=== PATIENT | female | born 1940 | race Caucasian/White ===

== ENCOUNTER 2016-10-20 10:28 | Inpatient (IN) | payer MEDICARE, OTHER ==
[2016-10-20] MEDS ORDERED: Lasix 20 MG/2 ML IV ONE (11:00)
[2016-10-20 11:10] LABS: BASOPHIL % 0.5 % (0.0-0.4); Eosinophil % 3.3 % (0.00-5.0); Granulocytes % 59.4 % (36.0-66.0); Lymphocytes % 18.7 % (24.0-44.0); Mean Cell Volume 96.9 fl (78-100); Mean Corpuscular Hemoglobin 31.8 pg (26-32); Mean Platelet Volume 8.9 fl (6-9.5); Monocytes % 18.1 % (0.0-12.0); Platelet Count 188 K/mm3 (150-450); Red Blood Count 3.52 M/mm3 (4.1-5.4); Red Cell Distribution Width 16.5 % (11.5-14.0); White Blood Count 3.6 K/mm3 (4.0-10.5)
--- NOTE | 2016-10-20 11:18 | XRAY ---
Indication: COPD exacerbation. Fluid overload. Comparison: July 18, 2016. Portable chest slightly degraded by respiration artifact. Lungs remain hyperinflated with probable stable left base infiltrate/atelectasis/effusion and left hilar masslike opacity. Right lung clear. Heart is not enlarged and again demonstrates subcarinal calcified nodes and right-sided Port-A-Cath. Bony thorax intact again with osteopenia and degenerative changes. Impression: Respiration artifact. Probable stable COPD, left base infiltrate/atelectasis/effusion, and left hilar masslike opacity. No new cardiopulmonary abnormalities.
[2016-10-20] MEDS: DUONEB 0.5-3 MG/3 ml Neb IH SCH ×4 (11:28→23:14)
[2016-10-20 11:49] LABS: ALBUMIN 3.3 g/dL (3.4-5.0); ANION GAP 13.1 MEQ/L (5-15); BILIRUBIN,TOTAL 0.4 mg/dL (0.2-1.0); Carbon Dioxide 31.6 mEq/L (21-32); Potassium 3.4 mEq/L (3.5-5.1); Total Protein 6.9 gm/dL (6.4-8.2)
[2016-10-20] MEDS ORDERED: Colace 100 MG PO PRN (12:42)
[2016-10-20] MEDS ORDERED: POTASSIUM CHLORIDE 20 mEq IN WATER 100ML 100 ML IV ONE (13:00)
[2016-10-20] MEDS: solu-CORTEF 100MG IV SCH ×2 (13:29→21:28)
[2016-10-20] MEDS ORDERED: Lasix 20 MG/2 ML IV SCH (17:00)
[2016-10-20 17:12] LABS: Collection Type CLEAN CATCH
[2016-10-20 17:15] LABS: Bacteria PACKED /HPF (NEGATIVE); COMPLETE URINE MICROSCOPIC? YES; Epithelial Cells MODERATE /HPF (FEW); WBC 0-2 /HPF (0-5)
[2016-10-20 17:16] LABS: ADD URINE CULTURE? YES (NO)
[2016-10-20] MEDS: ROCEPHIN 1 Gm-D5w 50 ml Bag** 1 G/50 ML IVPB IV SCH (20:19)
[2016-10-20] MEDS: XANAX 1 MG PO PRN (21:27)
[2016-10-20] MEDS: ZOCOR 20MG PO SCH (21:28)
[2016-10-20] MEDS ORDERED: LASIX 20 MG PO SCH (22:00)
[2016-10-20] MEDS ORDERED: NON-FORMULARY ITEM (Pravastatin Sodium [Pravastatin Sodium] 20 MG) PO SCH (22:00)
[2016-10-20] MEDS ORDERED: Klor Con 10 MEQ PO SCH (22:00)
[2016-10-21] MEDS: DUONEB 0.5-3 MG/3 ml Neb IH SCH ×6 (03:10→21:52)
[2016-10-21] MEDS: solu-CORTEF 100MG IV SCH (05:36)
[2016-10-21 05:45] LABS: ANION GAP 8.8 MEQ/L (5-15); Carbon Dioxide 32.3 mEq/L (21-32); Potassium 3.8 mEq/L (3.5-5.1)
--- NOTE | 2016-10-21 08:07 | PCM.HP ---
History of Present Illness - Chief Complaint Chief Complaint: COPD exacerbation; Fluid overload; Hypoxemia Date: 10/21/16 History of Present Illness: is a 76 year old female. with increasing edema in the lower extremities and increasing wheezing coughing and shortness of breath with history of diastolic heart failure copd, chronic hypoxemic respiratory failure and lung cancer presented to the office dyspneic and with hypoxia and was direct admitted and treated with iv diuresis and steroids. She is feeling a little better this am. Swelling improved some. She is still very weak and fatigued. she is also having urinary frequency and feels like she is only able to go small amounts and some suprapubic cramping as well. - Review of Systems Constitutional: Fatigue, Lethargy, No Fever, No Chills Eyes: No Eye Pain, No Vision Changes Ears, Nose, & Throat: No Ear Pain, No Sinus Drainage, No Mouth Pain, No Painful Swallowing Respiratory: Cough, Short Of Breath, Wheezing Cardiac: Chest Pain, Edema, No Palpitations, No Syncope Abdominal/Gastrointestinal: Constipation, No Abdominal Pain, No Nausea, No Vomiting, No Diarrhea Genitourinary Symptoms: Dysuria, Frequency, Hesitancy, Urgency, No Incontinence Musculoskeletal: Arthralgias, Back Pain, Joint Pain, No Fall, No Joint Redness Skin: No Cellulitis, No Decubiti, No Pruritis, No Rash Neurological: No Focal Weakness, No Speech Changes Hematologic/Lymphatic: Anemia, Easy Bruising Medications & Allergies Home Medications: Home Medication List Alprazolam 1 mg [Xanax 1 mg] 1 mg PO Q6HPRN PRN 08/07/14 [History Confirmed 10/20/16] Furosemide [Lasix] 40 mg PO BID 02/01/15 [History Confirmed 10/20/16] Aspirin 81 mg PO DAILY 07/18/16 [History Confirmed 10/20/16] Albuterol 2.5 mg/3 ml Neb [Proventil 2.5 mg/3 ml Neb] 2.5 mg IH QID [History Confirmed 10/20/16] Albuterol 8 gm Mdi Hfa [Ventolin Hfa MDI] 2 puff IH Q4HPRN PRN 10/20/16 [ History Confirmed 10/20/16] Pravastatin Sodium 20 mg PO HS 10/20/16 [History Confirmed 10/20/16] Cefuroxime Axetil 500 mg [Ceftin 500 mg] 500 mg PO BID #10 tablet 10/22/16 [ Rx] Potassium Chloride 10 Meq Tab* [Klor Con 10 MEQ] 10 meq PO TID #90 tab [Rx] Prednisone 20 mg [Deltasone 20 mg] 20 mg PO DAILY #5 tablet 10/22/16 [Rx] Allergies/Adverse Reactions: Allergies Allergy/AdvReac Type Severity Reaction Status Date / Time Sulfa (Sulfonamide Allergy Severe Swelling Verified 10/20/16 10:56 Antibiotics) bacitracin Allergy Intermediate Swelling Verified 10/20/16 10:56 [From Neosporin ([id number])] bacitracin zinc Allergy Intermediate Swelling Verified 10/20/16 10:56 [From Neosporin ([id number])] influenza virus vaccine, Allergy Intermediate Swelling Verified 10/20/16 10:56 specific [influenza virus vacc,specific] neomycin sulfate Allergy Intermediate Swelling Verified 10/20/16 10:56 [From Neosporin ([id number])] polymyxin B Allergy Intermediate Swelling Verified 10/20/16 10:56 [From Neosporin ([id number])] - Past Medical History Past Medical History: Yes Neurological History: TIA ENT History: Cataracts Cardiac History: No Pertinent History Respiratory History: Asthma, COPD, Lung Cancer Endocrine Medical History: No Pertinent History Musculoskelatal History: Arthritis GI Medical History: No Pertinent History History: No Pertinent History Pyscho-Social History: No Pertinent History Reproductive Disorders: No Pertinent History Comment: lung cancer; finished chemotherapy 10/06/16 - Female History Are you now?: No - Past Surgical History Past Surgical History: Yes Neuro Surgical History: No Pertinent History Cardiac History: No Pertinent History Respiratory Surgery: No Pertinent History GI Surgical History: Appendectomy, Hernia Repair Genitourinary Surgical Hx: Other Musculskeletal Surgical Hx: No Pertinent History Female Surgical History: Hysterectomy, Lumpectomy Other Surgical History: R lumpectomy, port placement; bladder tie-up - Social History Smoking Status: Current some day smoker How long have you smoked: 62 Exposure to second hand smoke: No Alcohol: None Drug Use: none Significant Family History: heart disease (father), cancer (brother with colon ca) - Physical Exam Vital Signs: Vital Signs - 24 hr Temp Pulse Resp BP Pulse Ox 10/21/16 07:25 98.0 F 97 H 17 103/58 92 L 10/21/16 04:00 98.2 F 103 H 19 109/55 94 L 10/21/16 00:00 98.4 F 104 H 22 105/55 95 10/20/16 23:14 96 H 21 94 L 10/20/16 20:00 98.3 F 100 H 20 83/50 96 10/20/16 18:53 105 H 24 82 L 10/20/16 16:00 97.6 F 100 H 25 H 88/51 97 10/20/16 15:27 103 H 22 92 L 10/20/16 12:00 24 10/20/16 11:44 97.6 F 107 H 24 114/64 99 10/20/16 11:31 96 H 20 99 Oxygen-Last 24 hours O2 Percentage 3 Liters = 32% O2 Percentage 3 Liters = 32% O2 Percentage 3 Liters = 32% O2 Percentage 3 Liters = 32% O2 Percentage 3 Liters = 32% O2 Percentage 3 Liters = 32% General Appearance: no apparent distress, alert Neurologic Exam: oriented x 3, cooperative Eye Exam: pale conjunctivae, No scleral icterus Ears, Nose, Throat Exam: dry mucous membranes Neck Exam: non-tender, supple Respiratory Exam: prolonged expirations, rhonchi, wheezing, No crackles/rales Cardiovascular Exam: murmur, tachycardia Gastrointestinal/Abdomen Exam: soft, normal bowel sounds, No tenderness, No distention Extremity Exam: pedal edema (left greater then right), No calf tenderness Skin Exam: warm, dry, No rash Results - Labs Lab/Micro Results: Accuchecks Date 10/21/16 Time 07:30 Accucheck Value: 258 Lab Results-Last 24 Hours 10/20/16 10/20/16 10/20/16 Range/Units 11:00 11:00 13:12 WBC 3.6 L (4.0-10.5) K/mm3 RBC 3.52 L (4.1-5.4) M/mm3 Hgb 11.2 L (12.0-16.0) gm/dl Hct 34.1 L (35-47) % MCV 96.9 (78-100) fl MCH 31.8 (26-32) pg MCHC 32.8 (32-36) g/dl RDW 16.5 H (11.5-14.0) % Plt Count 188 (150-450) K/mm3 MPV 8.9 (6-9.5) fl Gran % 59.4 (36.0-66.0) % Lymphocytes % 18.7 L (24.0-44.0) % Monocytes % 18.1 H (0.0-12.0) % Eosinophils % 3.3 (0.00-5.0) % Basophils % 0.5 (0.0-0.4) % Basophils # 0.02 (0-0.4) Sodium 143 (136-145) mEq/L Potassium 3.4 L (3.5-5.1) mEq/L Chloride 102 (98-107) mEq/L Carbon Dioxide 31.6 (21-32) mEq/L Anion Gap 13.1 (5-15) MEQ/L BUN 22 H (9-20) mg/dL Creatinine 1.16 (0.55-1.30) mg/dl Estimated GFR 48 ML/MIN Glucose 108 (70-110) MG/DL Calcium 8.9 (8.5-10.1) mg/dL Total Bilirubin 0.4 (0.2-1.0) mg/dL AST 19 (15-37) U/L ALT 7 L (12-78) U/L Alkaline Phosphatase 57 (46-116) U/L NT-Pro-B Natriuret Pep 202 (0-450) pg/ml Serum Total Protein 6.9 (6.4-8.2) gm/dL Albumin 3.3 L (3.4-5.0) g/dL Ur Collection Type CLEAN CATCH Urine Color YELLOW (YELLOW) Urine Appearance CLEAR (CLEAR) Urine pH 7.0 (5-6) Ur Specific [place] 1.015 (1.005-1.025) Urine Protein NEGATIVE (Negative) Urine Glucose (UA) NEGATIVE (NEGATIVE) mg/dL Urine Ketones NEGATIVE (NEGATIVE) Urine Nitrite POSITIVE (NEGATIVE) Urine Bilirubin NEGATIVE (NEGATIVE) Urine Urobilinogen 0.2 (0-1) mg/dL Urine WBC (Auto) NEGATIVE (NEGATIVE) Urine RBC (Auto) NEGATIVE (0-5) Michael/ul Urine Microscopic RBC 0-2 (0-2) /HPF Urine Microscopic WBC 0-2 (0-5) /HPF Ur Epithelial Cells MODERATE (FEW) /HPF Urine Bacteria PACKED (NEGATIVE) /HPF Specimen Received 10/20/16 1220 10/20/16 10/21/16 Range/Units 17:35 05:05 WBC (4.0-10.5) K/mm3 RBC (4.1-5.4) M/mm3 Hgb (12.0-16.0) gm/dl Hct (35-47) % MCV (78-100) fl MCH (26-32) pg MCHC (32-36) g/dl RDW (11.5-14.0) % Plt Count (150-450) K/mm3 MPV (6-9.5) fl Gran % (36.0-66.0) % Lymphocytes % (24.0-44.0) % Monocytes % (0.0-12.0) % Eosinophils % (0.00-5.0) % Basophils % (0.0-0.4) % Basophils # (0-0.4) Sodium 143 (136-145) mEq/L Potassium 3.8 3.8 (3.5-5.1) mEq/L Chloride 106 (98-107) mEq/L Carbon Dioxide 32.3 H (21-32) mEq/L Anion Gap 8.8 (5-15) MEQ/L BUN 26 H (9-20) mg/dL Creatinine 1.22 (0.55-1.30) mg/dl Estimated GFR 45 ML/MIN Glucose 258 H (70-110) MG/DL Calcium 8.5 (8.5-10.1) mg/dL Total Bilirubin (0.2-1.0) mg/dL AST (15-37) U/L ALT (12-78) U/L Alkaline Phosphatase (46-116) U/L NT-Pro-B Natriuret Pep (0-450) pg/ml Serum Total Protein (6.4-8.2) gm/dL Albumin (3.4-5.0) g/dL Ur Collection Type Urine Color (YELLOW) Urine Appearance (CLEAR) Urine pH (5-6) Ur Specific [place] (1.005-1.025) Urine Protein (Negative) Urine Glucose (UA) (NEGATIVE) mg/dL Urine Ketones (NEGATIVE) Urine Nitrite (NEGATIVE) Urine Bilirubin (NEGATIVE) Urine Urobilinogen (0-1) mg/dL Urine WBC (Auto) (NEGATIVE) Urine RBC (Auto) (0-5) Michael/ul Urine Microscopic RBC (0-2) /HPF Urine Microscopic WBC (0-5) /HPF Ur Epithelial Cells (FEW) /HPF Urine Bacteria (NEGATIVE) /HPF Specimen Received Microbiology 10/20/16 13:12 Urine Culture - Preliminary Clean Catch Midstream GRAM NEGATIVE ID AND SENSITIVITY PENDING Accuchecks Date 10/21/16 Time 07:30 Accucheck Value: 258 - Radiology Impressions Radiology Exams & Impressions: Radiology Procedures Category Date Time Status CHEST 1 VIEW (PORTABLE) Routine Exams 10/20/16 11:15 Completed ECHO W/2D AND DOPPLER [US] Routine Exams 10/21/16 12:49 Ordered - Other Procedures and Tests Respiratory Therapy 10/20/16 10:44 Respiratory Nebulizer 1100,1500,1900,2300,0300,0700 10/20/16 11:29 Oxygen NASAL CANNULA 3 lpm Assessment/Plan (1) Acute exacerbation of chronic obstructive airways disease Status: Acute Assessment & Plan: she has been having the swelling in the legs since before last week and u/s at that time was negative for dvt. continue dvt ppx use tyson hose and keep elevated use diuresis and replace k. responded well to the solucortef and the ceftriaxone with the breathing will try to wean to the prednisone and continue treatments. bp is low decrease lasix to day monitor K and replace continue ceftriaxone for UTI monitor culture results. Code(s): J44.1 - CHRONIC OBSTRUCTIVE PULMONARY DISEASE W (ACUTE) EXACERBATION (2) UTI (urinary tract infection) Status: Acute Code(s): N39.0 - URINARY TRACT INFECTION, SITE NOT SPECIFIED (3) Fluid overload Status: Acute Code(s): E87.70 - FLUID OVERLOAD, UNSPECIFIED (4) Anemia Status: Chronic Code(s): D64.9 - ANEMIA, UNSPECIFIED (5) Constipated Status: Chronic Qualifiers: Constipation type: slow transit constipation Qualified Code(s): K59.01 - Slow transit constipation Code(s): K59.00 - CONSTIPATION, UNSPECIFIED (6) Lung cancer Status: Chronic Qualifiers: Laterality: unspecified laterality Lung location: unspecified part of lung Qualified Code(s): C34.90 - Malignant neoplasm of unspecified part of unspecified bronchus or lung Code(s): C34.90 - MALIGNANT NEOPLASM OF UNSP PART OF UNSP BRONCHUS OR LUNG (7) Acute on chronic diastolic (congestive) heart failure Status: Acute Code(s): I50.33 - ACUTE ON CHRONIC DIASTOLIC (CONGESTIVE) HEART FAILURE (8) Hypokalemia Status: Acute Code(s): E87.6 - HYPOKALEMIA
[2016-10-21] MEDS: ECOTRIN 81 MG PO SCH (08:46)
[2016-10-21] MEDS: DELTASONE 20 MG PO SCH (08:46)
[2016-10-21] MEDS: Klor Con 10 MEQ PO SCH ×2 (08:46→21:12)
[2016-10-21] MEDS ORDERED: NON-FORMULARY ITEM (Aspirin [Aspirin] 81 MG) PO SCH (10:00)
[2016-10-21] MEDS ORDERED: Lasix 20 MG/2 ML IV SCH (10:00)
[2016-10-21] MEDS: ENOXAPARIN SODIUM SQ SCH (13:06)
[2016-10-21] MEDS ORDERED: Sodium Chloride 0.9% 10 ML FLUSH Syringe IV PRN (13:24)
[2016-10-21] MEDS: XANAX 1 MG PO PRN ×2 (13:39→21:14)
[2016-10-21] MEDS: ROCEPHIN 1 Gm-D5w 50 ml Bag** 1 G/50 ML IVPB IV SCH (21:15)
[2016-10-21] MEDS: ZOCOR 20MG PO SCH (21:23)
[2016-10-22] MEDS: DUONEB 0.5-3 MG/3 ml Neb IH SCH ×3 (02:43→10:54)
[2016-10-22 05:56] LABS: ANION GAP 7.6 MEQ/L (5-15); BLOOD UREA NITROGEN 17 mg/dL (9-20); CHLORIDE 109 mEq/L (98-107); Glucose 151 MG/DL (70-110); SODIUM 146 mEq/L (136-145)
[2016-10-22] MEDS: Klor Con 10 MEQ PO SCH ×2 (06:36→09:02)
[2016-10-22 07:07] VITALS: PULSE 97
[2016-10-22 07:45] VITALS: BP 115/56; O2SAT 96
[2016-10-22] MEDS ORDERED: POTASSIUM CHLORIDE 20 mEq IN WATER 100ML 100 ML IV ONE (07:59)
--- NOTE | 2016-10-22 08:13 | PCM.DCORD ---
- Discharge Discharge Date: 10/22/16 Disposition: Home, Self-Care Condition: Stable Prescriptions: New Prednisone 20 mg [Deltasone 20 mg] 20 mg PO DAILY #5 tablet Continue Alprazolam 1 mg [Xanax 1 mg] 1 mg PO Q6HPRN PRN PRN Reason: Anxiety Furosemide [Lasix] 40 mg PO BID Aspirin 81 mg PO DAILY Albuterol 8 gm Mdi Hfa [Ventolin Hfa MDI] 2 puff IH Q4HPRN PRN PRN Reason: Shortness Of Breath Pravastatin Sodium 20 mg PO HS Albuterol 2.5 mg/3 ml Neb [Proventil 2.5 mg/3 ml Neb] 2.5 mg IH QID Changed Potassium Chloride 10 Meq Tab* [Klor Con 10 MEQ] 10 meq PO TID #90 tab Instructions: Chronic Obstructive Pulmonary Disease, Urinary Tract Infection ( UTI), Quit Smoking Follow up with: JOHNNY REINOSO [Primary Care Provider] - 1 Week
--- NOTE | 2016-10-22 08:16 | PCM.DCORD ---
- Discharge Discharge Date: 10/22/16 Disposition: Home, Self-Care Condition: Stable Prescriptions: New Prednisone 20 mg [Deltasone 20 mg] 20 mg PO DAILY #5 tablet Cefuroxime Axetil 500 mg [Ceftin 500 mg] 500 mg PO BID #10 tablet Continue Alprazolam 1 mg [Xanax 1 mg] 1 mg PO Q6HPRN PRN PRN Reason: Anxiety Furosemide [Lasix] 40 mg PO BID Aspirin 81 mg PO DAILY Albuterol 8 gm Mdi Hfa [Ventolin Hfa MDI] 2 puff IH Q4HPRN PRN PRN Reason: Shortness Of Breath Pravastatin Sodium 20 mg PO HS Albuterol 2.5 mg/3 ml Neb [Proventil 2.5 mg/3 ml Neb] 2.5 mg IH QID Changed Potassium Chloride 10 Meq Tab* [Klor Con 10 MEQ] 10 meq PO TID #90 tab Instructions: Chronic Obstructive Pulmonary Disease, Urinary Tract Infection ( UTI), Quit Smoking Follow up with: JOHNNY REINOSO [Primary Care Provider] - 1 Week
[2016-10-22] MEDS ORDERED: Sodium Chloride 0.9% 500 ML 500 ML IV SCH (08:45)
[2016-10-22] MEDS: ECOTRIN 81 MG PO SCH (08:57)
[2016-10-22] MEDS: DELTASONE 20 MG PO SCH (08:57)
[2016-10-22] MEDS: ENOXAPARIN SODIUM SQ SCH (08:58)
--- NOTE | 2016-10-22 21:48 | PCM.DS ---
Discharge Summary Date of Admission: 10/20/16 10:28 Date of Discharge: 10/22/16 Admitting Physician: JOHNNY REINOSO Primary Care Provider: JOHNNY REINOSO Allergies Allergies Sulfa (Sulfonamide Antibiotics) Allergy (Severe, Verified 10/20/16 10:56) Swelling bacitracin [From Neosporin ([id number])] Allergy (Intermediate, Verified 10:56) Swelling bacitracin zinc [From Neosporin ([id number]-uqh-qtzje)] Allergy (Intermediate, Verified 10/20/16 10:56) Swelling influenza virus vaccine, specific [influenza virus vacc,specific] Allergy ( Intermediate, Verified 10/20/16 10:56) Swelling neomycin sulfate [From Neosporin ([id number]-amm-civbh)] Allergy (Intermediate, Verified 10/20/16 10:56) Swelling polymyxin B [From Neosporin ([id number])] Allergy (Intermediate, Verified 10:56) Swelling Hospital Summary - Hospital Course Hospital Course: presented with COPD exacerbation and UTI treated with steroids and developed steroid induced hyperglycemia that improved. also had increased swelling with previous u/s negative for dvt. Was placed on dvt ppx while inpatient with lovenox and teds and elevation and iv lasix improved the swelling that was worse on the left leg. Her urinating improved and breathing was much improved tolerated wean to po prednisone well. She was feeling much better and was still weak. SHe had 20 mEq of [place] prior to discharge and her home K was increased to tid from bid. Recheck next week. she will complete coarse e of ceftin for uti pending the culture. echo was done preliminarly ef appears 70% awaiting official reading. - Vitals & Intake/Output Vital Signs: Vital Signs Temperature 97.9 F 10/22/16 07:44 Pulse Rate 97 H 10/22/16 07:44 Respiratory Rate 20 10/22/16 07:55 Blood Pressure 115/56 10/22/16 07:44 O2 Sat by Pulse Oximetry 96 10/22/16 07:44 Oxygen-Last Documented O2 Percentage 2 Liters = 28% Intake & Output: Intake & Output 10/20/16 10/21/16 10/22/16 10/23/16 11:59 11:59 11:59 11:59 Intake Total 980 480 Output Total 3075 1300 Balance -2094 -0 Weight 60.736 kg 61.235 kg 67.177 kg - Lab Result Diagrams: 10/20/16 11:00 10/22/16 05:10 Lab Results-Last 24 Hrs: Accuchecks Date 10/22/16 Date 10/21/16 Time 07:54 Accucheck Value: 144 Accucheck Value: 201 Lab Results-Last 24 Hours 10/22/16 Range/Units 05:10 Sodium 146 H (136-145) mEq/L Potassium 3.0 L* (3.5-5.1) mEq/L Chloride 109 H (98-107) mEq/L Carbon Dioxide 32.0 (21-32) mEq/L Anion Gap 7.6 (5-15) MEQ/L BUN 17 (9-20) mg/dL Creatinine 0.90 (0.55-1.30) mg/dl Estimated GFR > 60 ML/MIN Glucose 151 H (70-110) MG/DL Calcium 8.0 L (8.5-10.1) mg/dL Micro Results-Entire Visit: Microbiology 10/20/16 13:12 Urine Culture - Preliminary Clean Catch Midstream GRAM NEGATIVE ID AND SENSITIVITY PENDING Accuchecks Date 10/22/16 Date 10/21/16 Time 07:54 Accucheck Value: 144 Accucheck Value: 201 - Radiology Exams Ordered Rad Exams-Entire Visit: Radiology Procedures Category Date Time Status ECHO W/2D AND DOPPLER [US] Routine Exams 10/21/16 12:49 Taken - Procedures and Test Procedures and Tests throughout Hospitalization: Therapy Orders & Screens 10/20/16 10:44 EKG ROUTINE Comment: Respiratory Nebulizer 1100,1500,1900,2300,0300,0700 Comment: Diagnosis: COPD exac., fluid overload, hypoxemia Respiratory Therapy Consult ROUTINE Comment: Reason For Exam: Diagnosis: COPD exac., fluid overload, hypoxemia 10/20/16 11:29 Oxygen NASAL CANNULA 3 lpm Comment: Diagnosis: COPD exac., fluid overload, hypoxemia 10/20/16 12:12 RT Screen per Nursing Assess ONCE Comment: Protocol Order Physician Instructions: Greater than 3 points order RT Admission Screen Reason For Exam: Triggered on Admission Diagnosis: COPD exacerbation; Fluid overload; Hypoxemia Diagnosis: COPD exacerbation; Fluid overload; Hypoxemia Pneumonia: No Home O2: Yes: wears at night Asthma: No CHF: No Home CPAP/BIPAP: No Home Nebs/MDI: Yes Total Points: 10 Discharge Exam General Appearance: no apparent distress, alert Neurologic Exam: alert, oriented x 3, cooperative Skin Exam: warm, dry Eye Exam: pale conjunctivae, No scleral icterus Ears, Nose, Throat Exam: dry mucous membranes Neck Exam: non-tender, supple Respiratory Exam: normal breath sounds, lungs clear Cardiovascular Exam: regular rate/rhythm, murmur, edema Gastrointestinal/Abdomen Exam: soft, normal bowel sounds, No tenderness Extremity Exam: normal inspection, pedal edema (left 1+ right trace), No calf tenderness Back Exam: normal inspection, No rash Final Diagnosis/Problem List - Final Discharge Diagnosis/Problem (1) Acute exacerbation of chronic obstructive airways disease Status: Acute (2) UTI (urinary tract infection) Status: Acute (3) Fluid overload Status: Acute (4) Anemia Status: Chronic (5) Constipated Status: Chronic (6) Lung cancer Status: Chronic (7) Acute on chronic diastolic (congestive) heart failure Status: Acute (8) Hypokalemia Status: Acute - Discharge Disposition: Home, Self-Care Condition: Stable Prescriptions: New Prednisone 20 mg [Deltasone 20 mg] 20 mg PO DAILY #5 tablet Cefuroxime Axetil 500 mg [Ceftin 500 mg] 500 mg PO BID #10 tablet Continue Alprazolam 1 mg [Xanax 1 mg] 1 mg PO Q6HPRN PRN PRN Reason: Anxiety Furosemide [Lasix] 40 mg PO BID Aspirin 81 mg PO DAILY Albuterol 8 gm Mdi Hfa [Ventolin Hfa MDI] 2 puff IH Q4HPRN PRN PRN Reason: Shortness Of Breath Pravastatin Sodium 20 mg PO HS Albuterol 2.5 mg/3 ml Neb [Proventil 2.5 mg/3 ml Neb] 2.5 mg IH QID Changed Potassium Chloride 10 Meq Tab* [Klor Con 10 MEQ] 10 meq PO TID #90 tab Instructions: Chronic Obstructive Pulmonary Disease, Urinary Tract Infection ( UTI), Quit Smoking Follow up with: JOHNNY REINOSO [Primary Care Provider] - 10/30/16 2:30 pm
--- NOTE | 2016-10-23 07:29 | ECHO ---
Transthoracic echocardiographic examination and color Doppler was done on 10/21/2016. INDICATION: History of diastolic failure. IMPRESSION: 1) NO REGIONAL WALL MOTION ABNORMALITY. ESTIMATED GLOBAL LEFT VENTRICULAR EJECTION FRACTION BETWEEN 60 AND 70%. 2) TRACE MITRAL REGURGITATION. 3) TRACE AORTIC REGURGITATION. 4) LEFT VENTRICULAR HYPERTROPHY. 5) TRACE PERICARDIAL EFFUSION. The left ventricle is visualized and demonstrated adequate motion of all the segments. Estimated global left ventricular ejection fraction between 60-70%. There is mild left ventricular hypertrophy. The mitral valve is seen and this opens adequately. There trace mitral regurgitation. The left atrium is normal. The aortic valve is mildly sclerotic. There is no significant gradient across the left ventricular outflow tract. There is trace regurgitation. Right side chambers are normal.
== END 2016-10-22 11:06 | disposition home or self-care (01) | DRG 190 ==
LOC: MED SURG 10:28
PROVIDERS: ADMIT Family Medicine; ATTEND Family Medicine
DX: J44.1 Chronic obstructive pulmonary disease with (acute) exacerbation (principal); I50.33 Acute on chronic diastolic (congestive) heart failure; N39.0 Urinary tract infection, site not specified; C34.90 Malignant neoplasm of unspecified part of unspecified bronchus or lung; D64.9 Anemia, unspecified; K59.00 Constipation, unspecified; E87.6 Hypokalemia; J45.909 Unspecified asthma, uncomplicated; R09.02 Hypoxemia; Z79.899 Other long term (current) drug therapy; M19.90 Unspecified osteoarthritis, unspecified site; Z72.0 Tobacco use; Z80.0 Family history of malignant neoplasm of digestive organs
CPT/HCPCS: 36415; 71010; 80048; 80053; 81000; 82962; 83880; 84132; 85025; 87077; 87086; 87186; 93005; 93306; 94640; 94760; J0696; J1642; J1650; J1720; J1940; J3480; A9270-GY; J7506

== ENCOUNTER 2017-02-01 09:21 | Emergency (ER) | payer MEDICARE, OTHER ==
[2017-02-01 09:42] VITALS: O2SAT 90
[2017-02-01] MEDS ORDERED: Bactroban OINTMENT TP ONE (09:49)
--- NOTE | 2017-02-01 09:49 | ERPHSYRPT ---
- History of Present Illness Time Seen by Provider: 02/01/17 09:46 Source: patient Exam Limitations: no limitations Patient Subjective Stated Complaint: states she thinks she has a cyst in the perineal area. Triage Nursing Assessment: to room per w/c. sob with exertion which she states is normal. hx of lung ca, pneumonia. has large cyst in perineal area. Physician History: cyst on right vaginal lip area started 2-3 days ago. denies any other symptoms Severity of Pain-Max: none Severity of Pain-Current: none Prior abdominal problems: none Sexual intercourse history: non-contributory Modifying Factors: Improves With: nothing Associated Symptoms: denies symptoms Allergies/Adverse Reactions: Sulfa (Sulfonamide Antibiotics) Allergy (Severe, Verified 02/01/17 09:42) Swelling bacitracin [From Neosporin ([id number]-[id number])] Allergy (Intermediate, Verified 04/12 09:42) Swelling bacitracin zinc [From Neosporin ([id number])] Allergy (Intermediate, Verified 02/01/17 09:42) Swelling influenza virus vaccine, specific [influenza virus vacc,specific] Allergy ( Intermediate, Verified 02/01/17 09:42) Swelling neomycin sulfate [From Neosporin ([id number]-pew-wjwfl)] Allergy (Intermediate, Verified 02/01/17 09:42) Swelling polymyxin B [From Neosporin ([id number]-xjn-[id number])] Allergy (Intermediate, Verified 04/12 09:42) Swelling Home Medications: Alprazolam 1 mg [Xanax 1 mg] 1 mg PO Q6HPRN PRN 08/07/14 [History] Furosemide [Lasix] 40 mg PO BID 02/01/15 [History] Aspirin 81 mg PO DAILY 07/18/16 [History] Albuterol 2.5 mg/3 ml Neb [Proventil 2.5 mg/3 ml Neb] 2.5 mg IH QID [History] Albuterol 8 gm Mdi Hfa [Ventolin Hfa MDI] 2 puff IH Q4HPRN PRN 10/20/16 [ History] Pravastatin Sodium 20 mg PO HS 10/20/16 [History] Hx Tetanus, Diphtheria Vaccination/Date Given: Yes Hx Influenza Vaccination/Date Given: No Hx Pneumococcal Vaccination/Date Given: Yes - Review of Systems Constitutional: No Symptoms Genitourinary Symptoms: Other (cyst on right side of vaginal lip) - Past Medical History Pertinent Past Medical History: Yes Neurological History: TIA ENT History: Cataracts Cardiac History: No Pertinent History Respiratory History: Asthma, COPD, Lung Cancer, Pneumonia Endocrine Medical History: No Pertinent History Musculoskeletal History: Arthritis GI Medical History: No Pertinent History History: No Pertinent History Psycho-Social History: No Pertinent History Female Reproductive Disorders: No Pertinent History Other Medical History: lung cancer; finished chemotherapy 10/06/16. started second round of chemotherapy 12-02-16. finished radiation treatments - Past Surgical History Past Surgical History: Yes Neuro Surgical History: No Pertinent History Cardiac: No Pertinent History Respiratory: No Pertinent History Gastrointestinal: Appendectomy, Hernia Repair Genitourinary: Other Musculoskeletal: No Pertinent History Female Surgical History: Hysterectomy, Lumpectomy Other Surgical History: R lumpectomy, port placement; bladder tie-up, fatty tumor removed from left ribs, eduardo cataracts removed , skin cancer removed from her forehead - Social History Smoking Status: Current every day smoker How long have you smoked: 62 Exposure to second hand smoke: No Drug Use: none Patient Lives Alone: No Significant Family History: heart disease (father), cancer (brother with colon ca) - Female History Hx Now: No - Nursing Vital Signs Nursing Vital Signs: Initial Vital Signs Temperature 97.7 F Temperature Source Oral Pulse Rate 107 Respiratory Rate 22 Blood Pressure [Right Arm] 121/62 Pain Intensity 9 - Physical Exam General Appearance: no apparent distress Gastrointestinal/Abdomen Exam: soft Pelvic Exam: other (vaginal area cyst right lip) SpO2: 90 Oxygen Delivery: Nasal Cannula - Course Nursing assessment & vital signs reviewed: Yes Ordered Tests: Active Orders 24 hr Category Date Time Status Oxygen-ED Only NASAL CANNULA 2 lpm Care 02/01/17 09:42 Active - Progress Progress: unchanged Counseled pt/family regarding: diagnosis, need for follow-up - Departure Time of Disposition: 09:49 Departure Disposition: Home Clinical Impression: Bartholin gland cyst Condition: Stable Critical Care Time: No Referrals: JOHNNY REINOSO [Primary Care Provider] - Instructions: Pilonidal Cyst Additional Instructions: Please follow the instructions given to you. Please take your medication as prescribed if given. If symptoms recur or get worse, come back to the emergency room if you cannot reach your primary care physician, or call your primary care physician for an appointment. Again if your symptoms get worse, come back to the emergency room. Thanks for visiting emergency room, and let us take care of you.
[2017-02-01 10:29] VITALS: BP 122/64; PULSE 102
== END 2017-02-01 10:28 | disposition home or self-care (01) ==
LOC: ED 09:21
DX: N75.0 Cyst of Bartholin's gland (principal)
CPT/HCPCS: 99282; A9270-GY

== ENCOUNTER 2017-02-08 20:28 | Emergency (ER) | payer MEDICARE, OTHER ==
--- NOTE | 2017-02-08 21:07 | ERPHSYRPT ---
- History of Present Illness Time Seen by Provider: 02/08/17 20:55 Source: patient Exam Limitations: no limitations Patient Subjective Stated Complaint: Pt was seen in ER a few days ago and was dx with bartholins cyst. Sts had a catheter placed at that time. Sts tonight was getting out of her chair and the catheter came out. Pt C/O pain in vaginal area. Sts has not urinated since the catheter came out. Triage Nursing Assessment: Pt alert, oriented, answers all questions appropriately. Skin p/w/d, resps non-labored at rest, labored with any exertion. SPO2 91-93% on 3L O2 patient wears at all times. Lung sounds end inspiratory and expiratory wheezes bilat. Physician History: This is a 76-year-old white female with history of stage IV lung cancer, TIA, cataracts, asthma, COPD, pneumonia, arthritis who has completed chemotherapy and radiation treatment Patient was seen here several going to days ago secondary to Bartholin's cyst she had a Mills catheter placed. Patient states that her Mills catheter came out this afternoon and she has been unable to urinate for about 4 hours. She states she is chronically short of breath she has no chest pain she states she is not short of breath more than usual. Past medical history includes TIA, cataracts, asthma, COPD, lung cancer, pneumonia, arthritis, lung cancer status post chemotherapy and radiation therapy ,. Past surgical history includes an appendectomy hernia repair hysterectomy and lumpectomy fatty tumor removed from her rib bladder tie up Timing/Duration: today (Mills came out about 4 hours ago) Severity: moderate Modifying Factors: Improves With: nothing Associated Symptoms: abdominal pain (acute discomfort), shortness of breath ( chronically short of breath), No nausea, No vomiting, No heartburn, No diaphoresis, No cough, No chills, No chest pain, No fever, No headaches, No loss of appetite, No malaise, No rash, No syncope, No seizure, No weakness Allergies/Adverse Reactions: Sulfa (Sulfonamide Antibiotics) Allergy (Severe, Verified 02/08/17 20:51) Swelling bacitracin [From Neosporin ([id number])] Allergy (Intermediate, Verified 20:51) Swelling bacitracin zinc [From Neosporin ([id number])] Allergy (Intermediate, Verified 02/08/17 20:51) Swelling influenza virus vaccine, specific [influenza virus vacc,specific] Allergy ( Intermediate, Verified 02/08/17 20:51) Swelling neomycin sulfate [From Neosporin ([id number])] Allergy (Intermediate, Verified 02/08/17 20:51) Swelling polymyxin B [From Neosporin ([id number]-[id number])] Allergy (Intermediate, Verified 20:51) Swelling Home Medications: Alprazolam 1 mg [Xanax 1 mg] 1 mg PO Q6HPRN PRN 08/07/14 [History] Furosemide [Lasix] 40 mg PO BID 02/01/15 [History] Aspirin 81 mg PO DAILY 07/18/16 [History] Albuterol 2.5 mg/3 ml Neb [Proventil 2.5 mg/3 ml Neb] 2.5 mg IH QID [History] Albuterol 8 gm Mdi Hfa [Ventolin Hfa MDI] 2 puff IH Q4HPRN PRN 10/20/16 [ History] Pravastatin Sodium 20 mg PO HS 10/20/16 [History] Hx Tetanus, Diphtheria Vaccination/Date Given: Yes Hx Influenza Vaccination/Date Given: No Hx Pneumococcal Vaccination/Date Given: Yes Immunizations Up to Date: Yes - Review of Systems Constitutional: No Fever, No Chills Eyes: No Symptoms Ears, Nose, & Throat: No Symptoms Respiratory: Dyspnea (chronically short of breath) Cardiac: No Chest Pain, No Edema, No Syncope Abdominal/Gastrointestinal: Other (suprapubic discomfort) Genitourinary Symptoms: No Symptoms, Other (patient recently seen here for bartolin cyst, patient placed on acyclovir and a cream), No Dysuria Musculoskeletal: No Back Pain, No Neck Pain Skin: No Rash Neurological: No Dizziness, No Focal Weakness, No Sensory Changes Psychological: No Symptoms Endocrine: No Symptoms All Other Systems: Reviewed and Negative (review sternal for significant [place]) - Past Medical History Pertinent Past Medical History: Yes Neurological History: TIA ENT History: Cataracts Cardiac History: No Pertinent History Respiratory History: Asthma, COPD, Lung Cancer, Pneumonia Endocrine Medical History: No Pertinent History Musculoskeletal History: Arthritis GI Medical History: No Pertinent History History: No Pertinent History Psycho-Social History: No Pertinent History Female Reproductive Disorders: No Pertinent History Other Medical History: lung cancer; finished chemotherapy 10/06/16. started second round of chemotherapy 12-02-16. finished radiation treatments - Past Surgical History Past Surgical History: Yes Neuro Surgical History: No Pertinent History Cardiac: No Pertinent History Respiratory: No Pertinent History Gastrointestinal: Appendectomy, Hernia Repair Genitourinary: Other Musculoskeletal: No Pertinent History Female Surgical History: Hysterectomy, Lumpectomy Other Surgical History: R lumpectomy, port placement; bladder tie-up, fatty tumor removed from left ribs, eduardo cataracts removed , skin cancer removed from her forehead - Social History Smoking Status: Current every day smoker How long have you smoked: 62 Exposure to second hand smoke: No Drug Use: none Patient Lives Alone: No Significant Family History: heart disease (father), cancer (brother with colon ca) - Female History Hx Now: No - Nursing Vital Signs Nursing Vital Signs: Initial Vital Signs Temperature 98.3 F Temperature Source Oral Pulse Rate 132 Respiratory Rate 24 Blood Pressure [Right Arm] 132/71 Pain Intensity 6 - Physical Exam General Appearance: no apparent distress, alert, other (laterally white female alert oriented x 3 pleasant and cooperative to examination) Eye Exam: PERRL/EOMI, eyes nml inspection Ears, Nose, Throat Exam: normal ENT inspection, TMs normal, pharynx normal, moist mucous membranes Neck Exam: normal inspection, non-tender, supple, full range of motion Respiratory Exam: wheezing (scattered wheezes) Cardiovascular Exam: tachycardia Gastrointestinal/Abdomen Exam: soft, normal bowel sounds, tenderness (mild suprapubic tenderness), No mass Pelvic Exam: other (Patient's external genitalia show mild edema and lightening of the skin of the right labia majora) Back Exam: normal inspection, normal range of motion, No CVA tenderness, No vertebral tenderness Extremity Exam: normal inspection, normal range of motion, pelvis stable Neurologic Exam: alert, oriented x 3, cooperative, normal mood/affect, nml cerebellar function, nml station & gait, sensation nml, No motor deficits Skin Exam: normal color, warm, dry, No rash SpO2 Interpretation: borderline oxygenation (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) SpO2: 91 Oxygen Delivery: Nasal Cannula - Course Nursing assessment & vital signs reviewed: Yes Ordered Tests: Active Orders 24 hr Category Date Time Status Catheter-[place] STAT Care 02/08/17 21:13 Active CULTURE,URINE Stat Lab 02/08/17 21:22 Received UA W/ MICROSCOPIC Stat Lab 02/08/17 21:22 Completed Lab/Rad Data: Laboratory Results 02/08/17 Range/Units 21:22 Ur Collection Type CATH Urine Color YELLOW (YELLOW) Urine Appearance SLIGHTLY CLOUDY (CLEAR) Urine pH 5.0 (5-6) Ur Specific [place] 1.020 (1.005-1.025) Urine Protein 30 (Negative) Urine Ketones NEGATIVE (NEGATIVE) Urine Blood 250 (0-5) Michael/ul Urine Nitrite NEGATIVE (NEGATIVE) Urine Bilirubin NEGATIVE (NEGATIVE) Urine Urobilinogen NORMAL (0-1) mg/dL Ur Leukocyte Esterase 1+ (NEGATIVE) Urine Microscopic RBC 25-50 (0-2) /HPF Urine Microscopic WBC 15-25 (0-5) /HPF Ur Epithelial Cells MODERATE (FEW) /HPF Urine Bacteria MANY (NEGATIVE) /HPF Hyaline Casts 10-25 (0-2) /LPF Urine Mucus MANY (NEGATIVE) /HPF Urine Glucose NEGATIVE (NEGATIVE) mg/dL Specimen Received 02/08/172119 - Progress Progress: improved Progress Note: 02/08/17 21:10 76-year-old white female with history of stage IV lung cancer also history of asthma COPD cataracts pneumonia arthritis He has been through chemotherapy and radiation therapy and is on home O2 She was seen here several days ago Mills was placed she also was treated with acyclovir for Bartholin's cyst. On physical examination patient is alert oriented 3 she is on oxygen chronically and currently on 3 L running an oxygen saturation of 91%. HEENT are within normal limits neck is supple. Lungs bilateral wheezes. Heart is tachycardic. Abdomen there is mild suprapubic tenderness genitalia there is edema to the right labia majora the skin appears to be a somewhat white in some areas the nurse reports some drainage I do not see drainage at this time. Extremities full range of motion pulse equal symmetrical 2 over 4 neuro cranial nerves II through XII are intact DTRs symmetrical 2 over 4 Cap[place] Coma Scale 15. Patient has urinary retention and her main presenting complaint is the suprapubic discomfort secondary to this. I've asked the nurses to place a Mills Will go ahead and ordered a urinalysis. I have offered to give the patient a breathing treatment and workup her lung problem however she at this time does not want to do this, , she states she will get a breathing treatment at home she also states that she is going to see her lung doctor in a day or 2 and does not want me to workup her lung problem will have nurses reaffirm this. We'll recheck patient after Mills has been placed and she is more comfortable. 02/08/17 21:43 Patient does have a UTI. Will place patient on Macrobid 100 mg orally twice a day urine has been cultured. Patient did not want further treatment. Mills has been placed. - Departure Time of Disposition: 21:43 Departure Disposition: Home Clinical Impression: Urinary retention, history of lung cancer stage IV UTI (urinary tract infection) Qualifiers: Urinary tract infection type: site unspecified Hematuria presence: with hematuria Qualified Code(s): N39.0 - Urinary tract infection, site not specified ; R31.9 - Hematuria, unspecified Condition: Fair Critical Care Time: No Additional Instructions: Return home. Macrobid 100 mg orally twice a day for 10 days. Follow-up with your family doctor. Albuterol treatments as prescribed by your gas specialist oxygen as prescribed by your gas specialist. Return for acute distress or for severe symptoms Prescriptions: Nitrofurantoin Macro 100 mg [Macrobid 100MG Capsule] 100 mg PO BID #20 capsule
[2017-02-08 21:37] LABS: ADD URINE CULTURE? YES (NO); Bacteria MANY /HPF (NEGATIVE); Bilirubin NEGATIVE (NEGATIVE); Blood 250 Ery/ul (0-5); COMPLETE URINE MICROSCOPIC? YES; Collection Type CATH; Epithelial Cells MODERATE /HPF (FEW); Glucose NEGATIVE (NEGATIVE); Leukocyte Esterase 1+ (NEGATIVE); Mucus MANY /HPF (NEGATIVE); WBC 15-25 /HPF (0-5)
[2017-02-08] MEDS ORDERED: Macrobid 100MG Capsule PO ONE (21:46)
[2017-02-08] MEDS ORDERED: Macrobid 100MG Capsule ONE (21:51)
[2017-02-08 22:00] VITALS: BP 111/60; PULSE 117; O2SAT 97
== END 2017-02-08 22:13 | disposition home or self-care (01) ==
LOC: ED 20:28
DX: R33.9 Retention of urine, unspecified (principal); R31.9 Hematuria, unspecified; Z85.118 Personal history of other malignant neoplasm of bronchus and lung; R06.02 Shortness of breath; R10.9 Unspecified abdominal pain; Z46.6 Encounter for fitting and adjustment of urinary device
CPT/HCPCS: 51702; 81000; 87086; 99283; A9270-GY

== ENCOUNTER 2017-02-09 15:21 | Inpatient (IN) | payer MEDICARE, OTHER ==
[2017-02-09] MEDS ORDERED: TYLENOL 325 MG ONE (15:41)
[2017-02-09] MEDS ORDERED: TYLENOL 325 MG PO STA (15:44)
[2017-02-09] MEDS ORDERED: Levofloxacin 500MG/100ML D5W 500 MG/100 ML BAG IV STA (16:02)
[2017-02-09] MEDS ORDERED: Sodium Chloride 0.9% 1000 ML 1,000 ML IV STA ×2 (16:02→16:08)
[2017-02-09] MEDS ORDERED: Levofloxacin 500MG/100ML D5W 500 MG/100 ML BAG IV ONE (16:07)
[2017-02-09] MEDS ORDERED: Sodium Chloride 0.9% 1000 ML 1,000 ML ONE (16:07)
[2017-02-09] MEDS ORDERED: DUONEB 0.5-3 MG/3 ml Neb IH ONE ×2 (16:09→16:36)
[2017-02-09 16:14] LABS: Mean Platelet Volume 8.8 fl (6-9.5); Platelet Count 205 K/mm3 (150-450); Red Blood Count 3.86 M/mm3 (4.1-5.4); Red Cell Distribution Width 13.9 % (11.5-14.0); White Blood Count 9.2 K/mm3 (4.0-10.5)
[2017-02-09] MEDS ORDERED: Sodium Chloride 0.9% 1000 ML 1,000 ML IV SCH ×2 (16:15→17:30)
[2017-02-09 16:18] LABS: INR 1.14 (0.8-3.0); PROTIME 12.9 SECONDS (9.95-12.35)
[2017-02-09 16:21] LABS: ALBUMIN 2.8 g/dL (3.4-5.0); ANION GAP 8.1 MEQ/L (5-15); BILIRUBIN,TOTAL 0.5 mg/dL (0.2-1.0); Carbon Dioxide 36.1 mEq/L (21-32); Potassium 4.3 mEq/L (3.5-5.1); Total Protein 6.1 gm/dL (6.4-8.2)
--- NOTE | 2017-02-09 16:21 | XRAY ---
Indication: Weakness. Possible sepsis. Comparison: October 20, 2016. Portable chest unchanged again hyperinflated with left hilar masslike opacity, left base infiltrate/atelectasis, calcified mediastinal nodes, and right Port-A-Cath. Remaining right lung and heart unremarkable.
--- NOTE | 2017-02-09 16:33 | ERPHSYRPT ---
- History of Present Illness Time Seen by Provider: 02/09/17 15:40 Source: patient Exam Limitations: clinical condition Patient Subjective Stated Complaint: ems reports they were called to pt house earlier today and was able to got back to chair. ems reports they were called to pt residence this afteroon for pt feeling weak. pt states she is currently being treated for left lung cancer. pt states she was seen in ER last pm for a matson catheter change and antibiotis for a "bladder infection." Triage Nursing Assessment: pt pale, hot to touch, dry. rectal temp 102.4. breathing wnl. pt alert and oriented x3. Physician History: PATIENT WITH HISTORY OR DIASTOLIC CONGESTIVE HEART FAILURE, COPD, CHRONIC HYPOXIC RESPIRATORY FAILURE COMPLAINS OF GENERALIZED WEAKNESS ASSOCIATED WITH FEVER AND GENERALIZED WEAKNESS SINCE LAST NIGHT. DENIES CHEST PAIN BUT COMPLAINS OF MARKED EXERTIONAL DYSPNEA. Timing/Duration: yesterday Severity: moderate Associated Symptoms: shortness of breath, fever Allergies/Adverse Reactions: Sulfa (Sulfonamide Antibiotics) Allergy (Severe, Verified 02/09/17 15:29) Swelling bacitracin [From Neosporin ([id number])] Allergy (Intermediate, Verified 15:29) Swelling bacitracin zinc [From Neosporin ([id number]-dzs-npnvo)] Allergy (Intermediate, Verified 02/09/17 15:29) Swelling influenza virus vaccine, specific [influenza virus vacc,specific] Allergy ( Intermediate, Verified 02/09/17 15:29) Swelling neomycin sulfate [From Neosporin ([id number])] Allergy (Intermediate, Verified 02/09/17 15:29) Swelling polymyxin B [From Neosporin ([id number]-teq-ayeac)] Allergy (Intermediate, Verified 15:29) Swelling Home Medications: Alprazolam 1 mg [Xanax 1 mg] 1 mg PO Q6HPRN PRN 08/07/14 [History] Furosemide [Lasix] 40 mg PO BID 02/01/15 [History] Aspirin 81 mg PO DAILY 07/18/16 [History] Albuterol 8 gm Mdi Hfa [Ventolin Hfa MDI] 2 puff IH Q4HPRN PRN 10/20/16 [ History] Pravastatin Sodium 20 mg PO HS 10/20/16 [History] Acyclovir 200 mg Cap [Zovirax 200 mg ] 200 mg PO BID 02/09/17 [History] Hx Tetanus, Diphtheria Vaccination/Date Given: Yes (up to date) Hx Influenza Vaccination/Date Given: No Hx Pneumococcal Vaccination/Date Given: No Immunizations Up to Date: Yes - Review of Systems Constitutional: Fever, Chills, Weakness Eyes: No Symptoms Ears, Nose, & Throat: No Symptoms Respiratory: Dyspnea, Dyspnea on Exertion (KILLIAN), Wheezing Cardiac: No Symptoms Abdominal/Gastrointestinal: No Symptoms Genitourinary Symptoms: No Symptoms Musculoskeletal: No Symptoms Skin: No Symptoms - Past Medical History Pertinent Past Medical History: Yes Neurological History: TIA ENT History: Cataracts Cardiac History: No Pertinent History Respiratory History: Asthma, COPD, Lung Cancer, Pneumonia Endocrine Medical History: No Pertinent History Musculoskeletal History: Arthritis GI Medical History: No Pertinent History History: No Pertinent History Psycho-Social History: No Pertinent History Female Reproductive Disorders: No Pertinent History Other Medical History: lung cancer; finished chemotherapy 10/06/16. started second round of chemotherapy 12-02-16. finished radiation treatments - Past Surgical History Past Surgical History: Yes Neuro Surgical History: No Pertinent History Cardiac: No Pertinent History Respiratory: No Pertinent History Gastrointestinal: Appendectomy, Hernia Repair Genitourinary: Other Musculoskeletal: No Pertinent History Female Surgical History: Hysterectomy, Lumpectomy Other Surgical History: R lumpectomy, port placement; bladder tie-up, fatty tumor removed from left ribs, eduardo cataracts removed , skin cancer removed from her forehead - Social History Smoking Status: Current every day smoker How long have you smoked: 65 Exposure to second hand smoke: Yes Drug Use: none Patient Lives Alone: No Significant Family History: heart disease (father), cancer (brother with colon ca) - Female History Hx Now: No - Nursing Vital Signs Nursing Vital Signs: Initial Vital Signs Temperature 102.4 F Temperature Source Rectal Pulse Rate 116 Respiratory Rate 16 Blood Pressure [] 89/58 Pain Intensity 0 - Physical Exam General Appearance: lethargy Eye Exam: PERRL/EOMI, eyes nml inspection Ears, Nose, Throat Exam: normal ENT inspection, TMs normal, pharynx normal, moist mucous membranes Neck Exam: normal inspection, non-tender, supple, full range of motion Respiratory Exam: crackles/rales, wheezing (DIFFUSE INSPIRATORY WHEEZES), No respiratory distress Cardiovascular Exam: regular rate/rhythm, normal heart sounds, normal peripheral pulses Gastrointestinal/Abdomen Exam: soft, normal bowel sounds, No tenderness, No mass Back Exam: normal inspection, normal range of motion, No CVA tenderness, No vertebral tenderness Extremity Exam: normal inspection, normal range of motion, pelvis stable Neurologic Exam: alert, oriented x 3, cooperative, normal mood/affect, nml cerebellar function, nml station & gait, sensation nml, No motor deficits Skin Exam: normal color, warm, dry, No rash Lymphatic Exam: No adenopathy SpO2 Interpretation: normal SpO2: 96 Oxygen Delivery: Nasal Cannula - Radiology Exams Chest X-ray Interpretation: Discussed w/ radiologist (HYPERINFLATED WISTH LEFT HILAR, MASSLIKE OPACITY LEFT BASE INFILTRATE/ATELECTASIS) Ordered Tests: Active Orders 24 hr Category Date Time Status Bedrest with BRP/BSC ROUTINE Activity 02/09/17 17:20 Ordered Admission/Status Order ROUTINE Care 02/09/17 17:18 Ordered Call Admit Doctor for Orders ON ADMISSION Care 02/09/17 17:19 Ordered Software Application Tester STAT Care 02/09/17 15:38 Active Cath [Catheter-[place]] STAT Care 02/09/17 16:04 Active Code Status Order ROUTINE Care 02/09/17 17:18 Ordered EKG-ER Only STAT Care 02/09/17 16:20 Active IV Care Q6H Care 02/09/17 17:18 Ordered IV Insertion STAT Care 02/09/17 15:38 Active Oxygen-ED Only NASAL CANNULA 3 lpm Care 02/09/17 15:38 Active Vital Signs Q4H Care 02/09/17 17:18 Ordered Cardiac Diet Diet 02/09/17 Breakfast Ordered CHEST 1 VIEW (PORTABLE) Stat Exams 02/09/17 16:02 Completed BLOOD CULTURE Stat Lab 02/09/17 15:50 Received CBC W DIFF Stat Lab 02/09/17 16:02 Completed CMP Stat Lab 02/09/17 16:02 Completed CULTURE,URINE Stat Lab 02/09/17 16:04 Ordered Lactic Acid Stat Lab 02/09/17 16:02 Completed Manual Differential NC Stat Lab 02/09/17 16:02 Completed PROTIME WITH INR Stat Lab 02/09/17 16:02 Completed UA W/ MICROSCOPIC Stat Lab 02/09/17 16:04 Completed Oxygen NASAL CANNULA 2 lpm RT 02/09/17 17:18 Ordered Pulse Oximetry CONTINUOUS RT 02/09/17 17:20 Ordered Respiratory Nebulizer STAT RT 02/09/17 16:09 Completed Respiratory Nebulizer STAT RT 02/09/17 17:26 Ordered Transfer Order Routine Transfer 02/09/17 17:17 Ordered Medication Summary Generic Name Dose Route Start Last Admin Trade Name Suyapa PRN Reason Stop Dose Admin Acetaminophen 650 mg 02/09/17 17:18 Tylenol 325 Mg PO 03/11/17 17:17 Q4H PRN PRN PAIN AND/OR FEVER Levofloxacin/Dextrose 500 mg in 100 mls @ 100 mls/hr 02/10/17 10:00 Levofloxacin 500mg/100ml D5w IV 03/12/17 09:59 Q24H10 RUDI Sodium Chloride 1,000 mls @ 75 mls/hr 02/09/17 17:30 Sodium Chloride 0.9% 1000 Ml IV 03/11/17 17:29 .[id number] RUDI Levalbuterol HCl 1.25 mg 02/09/17 17:24 Xopenex 1.25 Mg/0.5 Ml Ud Nebule IH 03/11/17 17:23 Q2HPRN PRN DIFFICULTY BREATHING Ondansetron HCl 4 mg 02/09/17 17:18 Zofran 4 Mg/2 Ml Vial IV 03/11/17 17:17 Q6H PRN PRN NAUSEA/VOMITING Discontinued Medications Generic Name Dose Route Start Last Admin Trade Name Suyapa PRN Reason Stop Dose Admin Acetaminophen Confirm 02/09/17 15:41 Tylenol 325 Mg Administered 02/09/17 15:42 Dose 650 mg .ROUTE .STK-MED ONE Acetaminophen 650 mg 02/09/17 15:44 02/09/17 15:45 Tylenol 325 Mg PO 02/09/17 15:45 650 mg STAT STA Administration Albuterol/Ipratropium 3 ml 02/09/17 16:09 02/09/17 16:42 Duoneb 0.5-3 Mg/3 Ml Neb IH 02/09/17 16:10 3 ml STAT ONE Administration Albuterol/Ipratropium Confirm 02/09/17 16:36 Duoneb 0.5-3 Mg/3 Ml Neb Administered 02/09/17 16:37 Dose 3 ml IH .STK-MED ONE Levofloxacin/Dextrose 500 mg in 100 mls @ 100 mls/hr 02/09/17 16:02 02/09/17 16:11 Levofloxacin 500mg/100ml D5w IV 02/09/17 17:01 100 mls/hr STAT STA Administration Sodium Chloride 1,000 mls @ 999 mls/hr 02/09/17 16:15 02/09/17 16:53 Sodium Chloride 0.9% 1000 Ml IV 02/09/17 18:15 Not Given .Q1H1M RUDI Sodium Chloride 1,000 mls @ 999 mls/hr 02/09/17 16:02 02/09/17 16:58 Sodium Chloride 0.9% 1000 Ml IV 02/09/17 17:02 100 mls/hr .Q1H1M STA Infusion Levofloxacin/Dextrose Confirm 02/09/17 16:07 Levofloxacin 500mg/100ml D5w Administered 02/09/17 16:08 Dose 500 mg in 100 mls @ ud IV .STK-MED ONE Sodium Chloride 1,000 mls @ 999 mls/hr 02/09/17 16:08 02/09/17 16:53 Sodium Chloride 0.9% 1000 Ml IV 02/09/17 17:08 Not Given .Q1H1M STA Sodium Chloride Confirm 02/09/17 16:07 Sodium Chloride 0.9% 1000 Ml Administered 02/09/17 16:08 Dose 1,000 mls @ ud .ROUTE .STK-MED ONE Lab/Rad Data: Laboratory Result Diagrams 02/09/17 16:02 02/09/17 16:02 Laboratory Results 02/09/17 02/09/17 02/09/17 Range/Units 16:04 16:02 16:02 WBC (4.0-10.5) K/mm3 RBC (4.1-5.4) M/mm3 Hgb (12.0-16.0) gm/dl Hct (35-47) % MCV (78-100) fl MCH (26-32) pg MCHC (32-36) g/dl RDW (11.5-14.0) % Plt Count (150-450) K/mm3 MPV (6-9.5) fl INR 1.14 (0.8-3.0) Sodium 132 L (136-145) mEq/L Potassium 4.3 (3.5-5.1) mEq/L Chloride 92 L (98-107) mEq/L Carbon Dioxide 36.1 H (21-32) mEq/L Anion Gap 8.1 (5-15) MEQ/L BUN 19 (9-20) mg/dL Creatinine 1.03 (0.55-1.30) mg/dl Estimated GFR 55 ML/MIN Glucose 123 H (70-110) MG/DL Lactic Acid (0.4-2.0) Calcium 8.6 (8.5-10.1) mg/dL Total Bilirubin 0.50 (0.2-1.0) mg/dL AST 21 (15-37) U/L ALT 20 (12-78) U/L Alkaline Phosphatase 59 (46-116) U/L Serum Total Protein 6.1 L (6.4-8.2) gm/dL Albumin 2.8 L (3.4-5.0) g/dL Ur Collection Type CATH Urine Color YELLOW (YELLOW) Urine Appearance CLOUDY (CLEAR) Urine pH 5.0 (5-6) Ur Specific [place] 1.020 (1.005-1.025) Urine Protein 100 (Negative) Urine Ketones SMALL (NEGATIVE) Urine Blood 250 (0-5) Michael/ul Urine Nitrite NEGATIVE (NEGATIVE) Urine Bilirubin NEGATIVE (NEGATIVE) Urine Urobilinogen 4 (0-1) mg/dL Ur Leukocyte Esterase 1+ (NEGATIVE) Urine Microscopic RBC 15-25 (0-2) /HPF Urine Microscopic WBC 5-10 (0-5) /HPF Ur Epithelial Cells RARE (FEW) /HPF Amorphous Crystals MANY (NEGATIVE) /HPF Urine Bacteria MANY (NEGATIVE) /HPF Urine Glucose 100 (NEGATIVE) mg/dL Specimen Received 02/09/17 1620 02/09/17 02/09/17 Range/Units 16:02 16:02 WBC 9.2 (4.0-10.5) K/mm3 RBC 3.86 L (4.1-5.4) M/mm3 Hgb 11.6 L (12.0-16.0) gm/dl Hct 36.3 (35-47) % MCV 94.0 (78-100) fl MCH 30.0 (26-32) pg MCHC 32.0 (32-36) g/dl RDW 13.9 (11.5-14.0) % Plt Count 205 (150-450) K/mm3 MPV 8.8 (6-9.5) fl INR (0.8-3.0) Sodium (136-145) mEq/L Potassium (3.5-5.1) mEq/L Chloride (98-107) mEq/L Carbon Dioxide (21-32) mEq/L Anion Gap (5-15) MEQ/L BUN (9-20) mg/dL Creatinine (0.55-1.30) mg/dl Estimated GFR ML/MIN Glucose (70-110) MG/DL Lactic Acid 1.1 (0.4-2.0) Calcium (8.5-10.1) mg/dL Total Bilirubin (0.2-1.0) mg/dL AST (15-37) U/L ALT (12-78) U/L Alkaline Phosphatase (46-116) U/L Serum Total Protein (6.4-8.2) gm/dL Albumin (3.4-5.0) g/dL Ur Collection Type Urine Color (YELLOW) Urine Appearance (CLEAR) Urine pH (5-6) Ur Specific [place] (1.005-1.025) Urine Protein (Negative) Urine Ketones (NEGATIVE) Urine Blood (0-5) Michael/ul Urine Nitrite (NEGATIVE) Urine Bilirubin (NEGATIVE) Urine Urobilinogen (0-1) mg/dL Ur Leukocyte Esterase (NEGATIVE) Urine Microscopic RBC (0-2) /HPF Urine Microscopic WBC (0-5) /HPF Ur Epithelial Cells (FEW) /HPF Amorphous Crystals (NEGATIVE) /HPF Urine Bacteria (NEGATIVE) /HPF Urine Glucose (NEGATIVE) mg/dL Specimen Received - Progress Progress Note: 02/09/17 16:[address] PATIENT ONTO SEPIS PROTOCOL DUE TO RECENT HISTORY OF ADMISSION FOR DIASTOLIC CONGESTIVE HEART FAILURE. LACTIC ACID OF1.1, PATIENT GIVEN BOLUS NORMAL SALINE 500ML OVER 1 HOUR, LEVAQUIN 500MG IV AFTER 2 SETS OF BLOOD CULTURES OBTAINED Discussed with DrJoseph: Other (DISCUSSED WITH DR BONITA REINOSO AT 1715 FOR ADMISSION) - Departure Time of Disposition: 17:30 Departure Disposition: In-patient Admission Clinical Impression: PNEUMONIA, EXACERBATION COPD, URINARY TRACT INFECTION Condition: Stable Critical Care Time: No Referrals: JOHNNY REINOSO [Primary Care Provider] -
[2017-02-09 17:08] LABS: Bilirubin NEGATIVE (NEGATIVE); Blood 250 Ery/ul (0-5); COMPLETE URINE MICROSCOPIC? YES; Collection Type CATH; Glucose 100 mg/dL (NEGATIVE); Leukocyte Esterase 1+ (NEGATIVE)
[2017-02-09 17:10] LABS: Bacteria MANY /HPF (NEGATIVE); Epithelial Cells RARE /HPF (FEW)
[2017-02-09] MEDS ORDERED: Zofran 4 MG/2 ML VIAL IV PRN (17:18)
[2017-02-09] MEDS ORDERED: TYLENOL 325 MG PO PRN (17:18)
[2017-02-09] MEDS ORDERED: Xopenex 1.25 MG/0.5 ML UD NEBULE IH PRN (17:24)
[2017-02-09] MEDS ORDERED: PROVENTIL 2.5 MG/3 ML NEB IH ONE (18:57)
--- NOTE | 2017-02-09 19:08 | PCM.HP ---
History of Present Illness - Chief Complaint Chief Complaint: Shortness of Breath Date: 02/09/17 History of Present Illness: is a 76 year old female. with history of stage IV lung cancer getting chemo and radiation. who presented last weekend to ED with vaginal pain and thought to have a cyst. Was seen in office on 02/03/17 and had extensive ulcerative reaction consistent with HSV vs Zoster infection of the right labial and gluteal fold. She was given acyclovir and returned on 02/04/17 as the swelling prevented her from being able to urinate. At that time a Matson was inserted and she was given lidocaine gel for the pain with significant improvement in the pain and swelling but has continued to have the rash that is improving but still painful. She had the catheter fall out yesterday and presented to the ED after she was unable to urinate after the catheter came out. She had the catheter replaced yesterday and a UA showed inflammation and she was treated with macrobid. the culture is no growth from that ua to date at this time. She then awoke this am and was very weak and lightheaded and fell at home and her could not get her up. She was feeling more short of breath as well. She was having some rattling in her chest. - Review of Systems Constitutional: Fever, Chills, Fatigue, Weakness Eyes: No Symptoms Ears, Nose, & Throat: No Symptoms Respiratory: Cough, Short Of Breath Cardiac: No Chest Pain, No Edema, No Syncope Abdominal/Gastrointestinal: No Abdominal Pain, No Nausea, No Vomiting, No Diarrhea Genitourinary Symptoms: Dysuria, Vaginal Discharge, Vaginal Itching Musculoskeletal: No Back Pain, No Neck Pain Skin: No Rash Neurological: Dizziness, No Focal Weakness, No Sensory Changes Psychological: No Symptoms Endocrine: No Symptoms Hematologic/Lymphatic: No Symptoms Immunological/Allergic: No Symptoms Medications & Allergies Home Medications: Home Medication List Furosemide [Lasix] 40 mg PO DAILY 02/01/15 [History Confirmed 02/09/17] Aspirin 81 mg PO DAILY 07/18/16 [History Confirmed 02/09/17] Albuterol 8 gm Mdi Hfa [Ventolin Hfa MDI] 2 puff IH Q4HPRN PRN 10/20/16 [ History Confirmed 02/09/17] Pravastatin Sodium 20 mg PO HS 10/20/16 [History Confirmed 02/09/17] Potassium Chloride 10 Meq Tab* [Klor Con 10 MEQ] 10 meq PO TID #90 tab [Rx Confirmed 02/09/17] Nitrofurantoin Macro 100 mg [Macrobid 100MG Capsule] 100 mg PO BID #20 capsule 02/08/17 [Rx Confirmed 02/09/17] Acyclovir 200 mg Cap [Zovirax 200 mg ] 200 mg PO 5XD 02/09/17 [History Confirmed 02/09/17] Alprazolam 1 mg [Xanax 1 mg] 2 mg PO HS 02/09/17 [History Confirmed ] Benzonatate [Tessalon Perle] 100 mg PO TIDPRN PRN 02/09/17 [History Confirmed ] Allergies/Adverse Reactions: Allergies Allergy/AdvReac Type Severity Reaction Status Date / Time Sulfa (Sulfonamide Allergy Severe Swelling Verified 02/09/17 15:29 Antibiotics) bacitracin Allergy Intermediate Swelling Verified 02/09/17 15:29 [From Neosporin ([id number])] bacitracin zinc Allergy Intermediate Swelling Verified 02/09/17 15:29 [From Neosporin ([id number])] influenza virus vaccine, Allergy Intermediate Swelling Verified 02/09/17 15:29 specific [influenza virus vacc,specific] neomycin sulfate Allergy Intermediate Swelling Verified 02/09/17 15:29 [From Neosporin ([id number])] polymyxin B Allergy Intermediate Swelling Verified 02/09/17 15:29 [From Neosporin ([id number])] - Past Medical History Past Medical History: Yes Neurological History: TIA ENT History: Cataracts Cardiac History: No Pertinent History Respiratory History: Asthma, COPD, Lung Cancer, Pneumonia Endocrine Medical History: No Pertinent History Musculoskelatal History: Arthritis GI Medical History: No Pertinent History History: No Pertinent History Pyscho-Social History: No Pertinent History Reproductive Disorders: No Pertinent History Comment: lung cancer; finished chemotherapy 10/06/16. started second round of chemotherapy 12-02-16. Stopped chemo in December per MD stating "we're going to take a break from it". finished radiation treatments - Female History Are you now?: No - Past Surgical History Past Surgical History: Yes Neuro Surgical History: No Pertinent History Cardiac History: No Pertinent History Respiratory Surgery: No Pertinent History GI Surgical History: Appendectomy, Hernia Repair Genitourinary Surgical Hx: Other Musculskeletal Surgical Hx: No Pertinent History Female Surgical History: Hysterectomy, Lumpectomy Other Surgical History: R lumpectomy, port placement; bladder tie-up, fatty tumor removed from left ribs, eduardo cataracts removed , skin cancer removed from her forehead - Social History Smoking Status: Current every day smoker How long have you smoked: 65 Exposure to second hand smoke: Yes Alcohol: None Drug Use: none Significant Family History: heart disease (father), cancer (brother with colon ca) - Physical Exam Vital Signs: Vital Signs - 24 hr Temp Pulse Resp BP Pulse Ox 02/09/17 18:01 99.0 F 109 H 85/52 02/09/17 17:58 112 H 21 96 02/09/17 17:48 99.0 F 109 H 18 85/52 96 02/09/17 17:34 114 H 22 91/51 02/09/17 17:28 96 02/09/17 16:53 116 H 16 89/58 98 02/09/17 16:44 116 H 22 95 02/09/17 16:28 121 H 22 98/60 96 02/09/17 15:25 102.4 F 122 H 24 100/60 97 Oxygen-Last 24 hours O2 Percentage 3 Liters = 32% O2 Percentage 2 Liters = 28% O2 Percentage 3 Liters = 32% O2 Percentage 3 Liters = 32% O2 Percentage 3 Liters = 32% General Appearance: no apparent distress, alert Neurologic Exam: alert, oriented x 3, cooperative, normal mood/affect, sensation nml, No motor deficits Eye Exam: PERRL/EOMI, eyes nml inspection, pale conjunctivae, No scleral icterus Ears, Nose, Throat Exam: normal ENT inspection, pharynx normal, moist mucous membranes Neck Exam: normal inspection, non-tender, supple, full range of motion Respiratory Exam: crackles/rales (bilateral), rhonchi Cardiovascular Exam: regular rate/rhythm, normal heart sounds, normal peripheral pulses, murmur, No edema Gastrointestinal/Abdomen Exam: soft, normal bowel sounds, No tenderness, No mass Pelvic Exam: other (right labial erythema and sweling improved. Crusting scabed lesions along the right gluteal fold to the back. Nurse Betzaida German present for exam) Back Exam: normal inspection, normal range of motion, No CVA tenderness, No vertebral tenderness Extremity Exam: normal inspection, normal range of motion, pelvis stable Skin Exam: normal color, warm, dry, rash (see pelvic exam) Lymphatic Exam: No adenopathy Results - Other Procedures and Tests Respiratory Therapy 02/09/17 17:18 Oxygen NASAL CANNULA 2 lpm 02/09/17 17:26 Respiratory Nebulizer 02/09/17 19:00 Respiratory Nebulizer Q4H Assessment/Plan (1) UTI (urinary tract infection) Current Visit: Yes Status: Acute Qualifiers: Qualified Code(s): N39.0 - Urinary tract infection, site not specified; R31.9 - Hematuria, unspecified Assessment & Plan: with the recent hospitalization, the chemo, the matson with removal and replacement will expand coverage with the zosyn also to cover for possible pneumonia left lower lobe she was according to orders given 2L NS but it looks like may not have received all of this. has history of chf will monitor fluid closely and bolus small as necessary has history of chronic low bp use lovenox for ppx. unable to tolerate the pulling of Matson with the residual and inability to urinate. Code(s): N39.0 - URINARY TRACT INFECTION, SITE NOT SPECIFIED (2) Urinary retention Current Visit: Yes Status: Acute Code(s): R33.9 - RETENTION OF URINE, UNSPECIFIED (3) Herpes simplex Current Visit: Yes Status: Acute Assessment & Plan: right labia with ddx of herpes zoster with severity of symptoms and swelling will increase acyclovir the lesions do appear improved compared to exam 6 days ago. on exam 6 days ago there was no cyst present. there was no documented exam of a cyst on the original ED visit where the original diagnosis was made. There has however been a severely painful vesicular rash on the right labia and gluteal fold since then. Code(s): B00.9 - HERPESVIRAL INFECTION, UNSPECIFIED (4) Pneumonia Current Visit: Yes Status: Acute Code(s): J18.9 - PNEUMONIA, UNSPECIFIED ORGANISM (5) Constipated Current Visit: No Status: Chronic Qualifiers: Constipation type: slow transit constipation Qualified Code(s): K59.01 - Slow transit constipation Code(s): K59.00 - CONSTIPATION, UNSPECIFIED (6) Anemia Current Visit: No Status: Chronic Code(s): D64.9 - ANEMIA, UNSPECIFIED (7) Lung cancer Current Visit: No Status: Chronic Qualifiers: Laterality: unspecified laterality Lung location: unspecified part of lung Qualified Code(s): C34.90 - Malignant neoplasm of unspecified part of unspecified bronchus or lung Code(s): C34.90 - MALIGNANT NEOPLASM OF UNSP PART OF UNSP BRONCHUS OR LUNG
[2017-02-09] MEDS ORDERED: MILK OF MAGNESIA 30 ML PO PRN (19:14)
[2017-02-09 20:36] LABS: Eosinophil 1 % (0.00-3.0); Platelet Estimate NORMAL (NORMAL); Total Cells Counted 100
[2017-02-09] MEDS ORDERED: Zosyn INJ IV ONE (21:05)
[2017-02-09] MEDS ORDERED: D5w 100ML Mini Bag 100 ML 100 ML IV ONE (21:10)
[2017-02-09] MEDS: ZOVIRAX 800 MG PO SCH (22:08)
[2017-02-09] MEDS: Zosyn INJ 4.5 GM in D5w 100ML Mini Bag 100 ML 100 ML IV SCH (22:08)
[2017-02-09] MEDS: Klor Con 10 MEQ PO SCH (22:09)
[2017-02-09] MEDS: XANAX 1 MG PO SCH ×2 (22:16→22:37)
[2017-02-10] MEDS: PROVENTIL 2.5 MG/3 ML NEB IH SCH ×8 (00:22→21:22)
[2017-02-10 06:24] LABS: Mean Cell Volume 95.6 fl (78-100); Mean Platelet Volume 8.6 fl (6-9.5); Platelet Count 153 K/mm3 (150-450); Red Blood Count 3.88 M/mm3 (4.1-5.4); Red Cell Distribution Width 13.7 % (11.5-14.0); White Blood Count 5.9 K/mm3 (4.0-10.5)
[2017-02-10 06:25] LABS: Mean Corpuscular Hemoglobin 29.8 pg (26-32)
[2017-02-10 06:57] LABS: ANION GAP 6.9 MEQ/L (5-15); BLOOD UREA NITROGEN 15 mg/dL (9-20); CHLORIDE 96 mEq/L (98-107); Carbon Dioxide 36.4 mEq/L (21-32); Glucose 92 MG/DL (70-110); Potassium 4.3 mEq/L (3.5-5.1); SODIUM 135 mEq/L (136-145)
[2017-02-10] MEDS: Zosyn INJ 4.5 GM in D5w 100ML Mini Bag 100 ML 100 ML IV SCH ×3 (06:58→21:07)
[2017-02-10] MEDS ORDERED: Ventolin Hfa MDI IH PRN (07:14)
[2017-02-10] MEDS ORDERED: PROVENTIL COMMON CANISTER IH PRN (07:21)
[2017-02-10 07:40] LABS: Eosinophil 2 % (0.00-3.0); Total Cells Counted 100
[2017-02-10 07:41] LABS: ANISOCYTOSIS 1+; Platelet Estimate NORMAL (NORMAL)
[2017-02-10] MEDS: ZOVIRAX 800 MG PO SCH ×5 (07:49→23:35)
--- NOTE | 2017-02-10 08:03 | PCM.NOTE ---
Date and Time: 02/10/17 08 Subjective Assessment: feeling weak and short of breath today. she is aching from the fall at home yesterday she has little appetite and some nausea. Objective Exam General Appearance: no apparent distress, alert, thin Neurologic Exam: alert, oriented x 3, cooperative, motor deficits Skin Exam: normal color, warm, dry Eye Exam: PERRL, EOMI, pale conjunctivae, No scleral icterus Ears, Nose, Throat Exam: normal ENT inspection, pharynx normal, moist mucous membranes Neck Exam: normal inspection, non-tender, supple, full range of motion Respiratory Exam: crackles/rales, rhonchi, No respiratory distress Cardiovascular Exam: tachycardia, No edema Gastrointestinal/Abdomen Exam: soft, No tenderness, No mass Extremity Exam: normal inspection, normal range of motion Back Exam: normal inspection, normal range of motion, No CVA tenderness, No vertebral tenderness Pelvic Exam: deferred Rectal Exam: deferred OBJECTIVE DATA Vital Signs: Vital Signs - 24 hr Temp Pulse Resp BP Pulse Ox 02/10/17 07:37 99.6 F 108 H 18 91/53 96 02/10/17 07:00 108 H 18 95 02/10/17 04:00 98.1 F 83 17 101/51 94 L 02/10/17 03:46 101 H 24 98 02/10/17 00:23 96 H 26 H 98 02/10/17 00:00 97.2 F 96 H 26 H 98/54 98 02/09/17 18:01 99.0 F 109 H 85/52 02/09/17 18:00 99.0 F 109 H 21 85/52 96 02/09/17 17:58 112 H 21 96 02/09/17 17:48 99.0 F 109 H 18 85/52 96 02/09/17 17:34 114 H 22 91/51 02/09/17 17:28 96 02/09/17 16:53 116 H 16 89/58 98 02/09/17 16:44 116 H 22 95 02/09/17 16:28 121 H 22 98/60 96 02/09/17 15:25 102.4 F 122 H 24 100/60 97 Oxygen-Last 24 hours O2 Percentage 4 Liters = 36% O2 Percentage 3 Liters = 32% O2 Percentage 3 Liters = 32% O2 Percentage 3 Liters = 32% O2 Percentage 3 Liters = 32% O2 Percentage 2 Liters = 28% O2 Percentage 3 Liters = 32% O2 Percentage 3 Liters = 32% O2 Percentage 3 Liters = 32% Pain Assessment - Last Documented Pain Intensity 0 Pain Scale Used 0-10 Pain Scale Intake and Output: Intake & Output 02/07/17 02/08/17 02/09/17 02/10/17 11:59 11:59 11:59 11:59 Intake Total 1242 Output Total 850 Balance 392 Weight 61.235 kg Lab Results: Lab Results-Last 24 Hours 02/10/17 02/10/17 Range/Units 06:10 06:10 WBC 5.9 (4.0-10.5) K/mm3 RBC 3.88 L (4.1-5.4) M/mm3 Hgb 11.6 L (12.0-16.0) gm/dl Hct 37.1 (35-47) % MCV 95.6 (78-100) fl MCH 29.8 (26-32) pg MCHC 31.3 L (32-36) g/dl RDW 13.7 (11.5-14.0) % Plt Count 153 (150-450) K/mm3 MPV 8.6 (6-9.5) fl Segmented Neutrophils 91 H (36.0-66.0) % Lymphocytes (Manual) 5 L (24-44) % Monocytes (Manual) 2 (0.0-12.0) % Eosinophils (Manual) 2 (0.00-3.0) % Differential Comment ABNORMAL Platelet Estimate NORMAL (NORMAL) Anisocytosis 1+ Sodium 135 L (136-145) mEq/L Potassium 4.3 (3.5-5.1) mEq/L Chloride 96 L (98-107) mEq/L Carbon Dioxide 36.4 H (21-32) mEq/L Anion Gap 6.9 (5-15) MEQ/L BUN 15 (9-20) mg/dL Creatinine 0.88 (0.55-1.30) mg/dl Estimated GFR > 60 ML/MIN Glucose 92 (70-110) MG/DL Calcium 8.7 (8.5-10.1) mg/dL NT-Pro-B Natriuret Pep 5564 H (0-450) pg/ml Multi-Disciplinary Progress Notes: Multi-Disciplinary Progress Notes 02/10/17 00:56 Respiratory Note by Mor,Juan Jose WENT TO PT RM FOR HER 2300 ALBUTEROL TX AND SHE WAS ASLEEP AND DIFFICULT TO AROUSE. AT THIS TIME HER SATS WERE 96% ON 3LPM O2 AND HR WAS 98 W/ RR OF 28. I CALLED FOR NURSING TO COME DOWN TO ASSIST. PT WOULD WAKE UP AND LOOK AT US AND GAVE A "HALF SMILE" BUT WOULD CLOSE HER EYES AND GO BACK TO SLEEP. AT THIS TIME I WAS CALLED TO ER FOR AN EMERGENCY. WHEN I RETURNED TO PT RM TO DO TX SHE WAS STILL DIFFICULT TO AROUSE SO I GAVE TX VIA BLOW BY AND RETURNED HER TO 3LPM O2 VIA NC POST TX. NURSING WAS PRESENT WHILE I DID THE TX. Initialized on 02/10/17 00:56 - END OF NOTE Assessment/Plan (1) UTI (urinary tract infection) Current Visit: Yes Status: Acute Assessment & Plan: continue zosyn for uti and the pneumonia with her stage IV lung cancer cover post obstructive fevers improving continue lovenox ppx work on increased activity continue Mills due to swelling causing urinary obstruction the pain from the ulcers is improved and swelling improving with her increased weakness falls and illness will likely require rehab placement. Code(s): N39.0 - URINARY TRACT INFECTION, SITE NOT SPECIFIED (2) Urinary retention Current Visit: Yes Status: Acute Code(s): R33.9 - RETENTION OF URINE, UNSPECIFIED (3) Herpes simplex Current Visit: Yes Status: Acute Code(s): B00.9 - HERPESVIRAL INFECTION, UNSPECIFIED (4) Pneumonia Current Visit: Yes Status: Acute Code(s): J18.9 - PNEUMONIA, UNSPECIFIED ORGANISM (5) Constipated Current Visit: No Status: Chronic Qualifiers: Constipation type: slow transit constipation Qualified Code(s): K59.01 - Slow transit constipation Code(s): K59.00 - CONSTIPATION, UNSPECIFIED (6) Anemia Current Visit: No Status: Chronic Code(s): D64.9 - ANEMIA, UNSPECIFIED (7) Lung cancer Current Visit: No Status: Chronic Qualifiers: Laterality: unspecified laterality Lung location: unspecified part of lung Qualified Code(s): C34.90 - Malignant neoplasm of unspecified part of unspecified bronchus or lung Code(s): C34.90 - MALIGNANT NEOPLASM OF UNSP PART OF UNSP BRONCHUS OR LUNG
[2017-02-10] MEDS: Klor Con 10 MEQ PO SCH ×3 (08:56→21:06)
[2017-02-10] MEDS: ENOXAPARIN SODIUM SQ SCH (08:56)
[2017-02-10] MEDS: ECOTRIN 81 MG PO SCH (08:56)
[2017-02-10] MEDS ORDERED: NON-FORMULARY ITEM (Aspirin [Aspirin] 81 MG) PO SCH (10:00)
[2017-02-10] MEDS ORDERED: Levofloxacin 500MG/100ML D5W 500 MG/100 ML BAG IV SCH (10:00)
[2017-02-10] MEDS ORDERED: Lasix 40 MG PO SCH (10:00)
[2017-02-10] MEDS: XANAX 1 MG PO SCH (21:06)
[2017-02-10] MEDS: ZOCOR 20MG PO SCH (21:06)
[2017-02-10] MEDS ORDERED: NON-FORMULARY ITEM (Pravastatin Sodium [Pravastatin Sodium] 20 MG) PO SCH (22:00)
[2017-02-11] MEDS: PROVENTIL 2.5 MG/3 ML NEB IH SCH ×6 (02:50→22:32)
[2017-02-11] MEDS: ZOVIRAX 800 MG PO SCH ×5 (06:27→22:36)
[2017-02-11] MEDS: Zosyn INJ 4.5 GM in D5w 100ML Mini Bag 100 ML 100 ML IV SCH ×3 (06:28→21:01)
[2017-02-11] MEDS: solu-MEDROL 125 MG IV SCH ×3 (08:46→20:53)
[2017-02-11] MEDS: Klor Con 10 MEQ PO SCH ×3 (08:50→20:52)
[2017-02-11] MEDS: Protonix 40MG Tablet PO SCH (08:50)
[2017-02-11] MEDS: ECOTRIN 81 MG PO SCH (08:50)
[2017-02-11] MEDS: Lasix 20 MG/2 ML IV SCH ×2 (08:51→17:17)
[2017-02-11] MEDS: ENOXAPARIN SODIUM SQ SCH (08:52)
--- NOTE | 2017-02-11 19:02 | PCM.NOTE ---
Date and Time: 02/11/171858 Subjective Assessment: feeling more short of breath this am. she has no appetite and is very weak she is frustrated with the leads causing her to have difficulty sleeping. the pain in the vaginal area is improved and now just itching Objective Exam General Appearance: no apparent distress, alert Neurologic Exam: alert, oriented x 3, cooperative, No motor deficits Skin Exam: normal color, warm, dry Eye Exam: PERRL, EOMI, eyes nml inspection Ears, Nose, Throat Exam: normal ENT inspection, pharynx normal, moist mucous membranes Neck Exam: normal inspection, non-tender, supple, full range of motion Respiratory Exam: respiratory distress, diminished breath sounds, accessory muscle use, crackles/rales, wheezing Cardiovascular Exam: tachycardia Gastrointestinal/Abdomen Exam: soft, No tenderness, No mass Extremity Exam: normal inspection, normal range of motion Back Exam: No CVA tenderness, No vertebral tenderness Pelvic Exam: deferred Rectal Exam: deferred OBJECTIVE DATA Vital Signs: Vital Signs - 24 hr Temp Pulse Resp BP Pulse Ox 02/11/17 18:15 103 H 22 96 02/11/17 15:00 97.7 F 106 H 20 106/56 90 L 02/11/17 11:27 110 H 28 H 97 02/11/17 11:00 98.6 F 104 H 22 95/55 94 L 02/11/17 08:30 20 02/11/17 07:00 98.6 F 118 H 21 138/68 95 02/11/17 04:00 32 H 02/11/17 03:26 97.2 F 125 H 36 H 112/62 97 02/11/17 02:50 125 H 36 H 97 02/10/17 23:53 34 H 02/10/17 23:48 97.5 F 133 H 35 H 107/66 96 02/10/17 21:22 115 H 24 96 02/10/17 20:00 98.3 F 116 H 23 109/56 92 L Oxygen-Last 24 hours O2 Percentage 3 Liters = 32% O2 Percentage 3 Liters = 32% O2 Percentage 3 Liters = 32% O2 Percentage 3 Liters = 32% O2 Percentage 3 Liters = 32% O2 Percentage 3 Liters = 32% Pain Assessment - Last Documented Pain Intensity 3 Pain Scale Used 0-10 Pain Scale Intake and Output: Intake & Output 07/02/10/17 02/11/17 02/12/17 11:59 11:59 11:59 11:59 Intake Total 1482 2109 720 Output Total 850 2100 550 Balance 632 9 170 Weight 61.235 kg Multi-Disciplinary Progress Notes: Multi-Disciplinary Progress Notes 02/11/17 13:32 Case Management Note by Isabelle Funes FROM [facility] CALLED TO REPORT THAT BED WILL BE AVAIL WHEN MD READY FOR DISCHARGE. Initialized on 02/11/17 13:32 - END OF NOTE 02/11/17 09:30 (created 02/11/17 13:30) Case Management Note by Isabelle Funes HERE FOR EVAL. WILL NOTIFY US ON BED AVAILABILITY. Initialized on 02/11/17 13:30 - END OF NOTE 02/11/17 08:40 (created 02/11/17 13:31) Case Management Note by Isabelle Funes REVIEWED DISCHARGE PLAN, CONTINUES TO PLAN TO TRANSITION TO [facility] FOR REHAB STAY ON DISCHARGE. DECLINED ADDNL NEEDS. WILL CONTINUE TO FOLLOW AND ASSESS FOR ALL DC NEEDS. Initialized on 02/11/17 13:31 - END OF NOTE Assessment/Plan (1) COPD exacerbation Current Visit: Yes Status: Acute Assessment & Plan: with the pnuemonia continue the zosyn she is afebrile she has increased work of breathing with both rales and wheezing/rhonchi add solumedrol change po lasix to iv bid she has matson for I/O she will require rehab to work on improved strength but her prognosis is limited with her lung cancer she has had the chemo and radiation and follows with oncology for this. Code(s): J44.1 - CHRONIC OBSTRUCTIVE PULMONARY DISEASE W (ACUTE) EXACERBATION (2) UTI (urinary tract infection) Current Visit: Yes Status: Acute Code(s): N39.0 - URINARY TRACT INFECTION, SITE NOT SPECIFIED (3) Urinary retention Current Visit: Yes Status: Acute Code(s): R33.9 - RETENTION OF URINE, UNSPECIFIED (4) Herpes simplex Current Visit: Yes Status: Acute Code(s): B00.9 - HERPESVIRAL INFECTION, UNSPECIFIED (5) Pneumonia Current Visit: Yes Status: Acute Code(s): J18.9 - PNEUMONIA, UNSPECIFIED ORGANISM (6) Constipated Current Visit: Yes Status: Chronic Qualifiers: Constipation type: slow transit constipation Qualified Code(s): K59.01 - Slow transit constipation Code(s): K59.00 - CONSTIPATION, UNSPECIFIED (7) Anemia Current Visit: Yes Status: Chronic Code(s): D64.9 - ANEMIA, UNSPECIFIED (8) Lung cancer Current Visit: Yes Status: Chronic Qualifiers: Laterality: unspecified laterality Lung location: unspecified part of lung Qualified Code(s): C34.90 - Malignant neoplasm of unspecified part of unspecified bronchus or lung Code(s): C34.90 - MALIGNANT NEOPLASM OF UNSP PART OF UNSP BRONCHUS OR LUNG
[2017-02-11] MEDS: ZOCOR 20MG PO SCH (20:52)
[2017-02-11] MEDS: XANAX 1 MG PO SCH (20:52)
[2017-02-12] MEDS: PROVENTIL 2.5 MG/3 ML NEB IH SCH ×3 (03:01→11:25)
[2017-02-12 05:46] LABS: Mean Cell Volume 95.3 fl (78-100); Mean Corpuscular Hemoglobin 30.4 pg (26-32); Mean Platelet Volume 8.8 fl (6-9.5); Platelet Count 185 K/mm3 (150-450); Red Blood Count 3.19 M/mm3 (4.1-5.4); Red Cell Distribution Width 13.1 % (11.5-14.0); White Blood Count 3.8 K/mm3 (4.0-10.5)
[2017-02-12] MEDS: solu-MEDROL 125 MG IV SCH (06:09)
[2017-02-12 06:14] LABS: ANION GAP 2.8 MEQ/L (5-15); BLOOD UREA NITROGEN 13 mg/dL (9-20); CHLORIDE 92 mEq/L (98-107); Carbon Dioxide 41.9 mEq/L (21-32); Glucose 170 MG/DL (70-110); Potassium 4.2 mEq/L (3.5-5.1); SODIUM 133 mEq/L (136-145)
[2017-02-12] MEDS: Zosyn INJ 4.5 GM in D5w 100ML Mini Bag 100 ML 100 ML IV SCH (06:15)
[2017-02-12] MEDS: ZOVIRAX 800 MG PO SCH (07:20)
[2017-02-12] MEDS ORDERED: Xylocaine 2% JELLY TOP PRN (08:11)
--- NOTE | 2017-02-12 08:18 | PCM.DCORD ---
- Discharge Discharge Date: 02/12/17 Disposition: DC TO [facility] Condition: Stable Prescriptions: New Amox Tr/Potass Clav. 875 mg [Augmentin 875-125 Tablet] 875 mg PO BID # 10 tablet Prednisone 20 mg [Deltasone 20 mg] 40 mg PO DAILY #10 tablet Magnesium Hydroxide 30 ml [Milk of Magnesia 30 ml] 30 ml PO QDP PRN #0 udcup PRN Reason: Constipation PANTOPRAZOLE 40 mg Tablet [Protonix 40MG Tablet] 40 mg PO DAILY #0 tab Acetaminophen 325 mg [Tylenol 325 mg] 650 mg PO Q4H PRN PRN #0 tablet PRN Reason: Pain And/Or Fever Lidocaine HCl 2% Jelly [Xylocaine 2% JELLY] 2 ml TOP Q2H PRN #0 jel PRN Reason: Pain Acyclovir 800 mg [Zovirax 800 mg] 800 mg PO 5XD #0 tablet Continue Furosemide [Lasix] 40 mg PO DAILY Aspirin 81 mg PO DAILY Albuterol 8 gm Mdi Hfa [Ventolin Hfa MDI] 2 puff IH Q4HPRN PRN PRN Reason: Shortness Of Breath Pravastatin Sodium 20 mg PO HS Potassium Chloride 10 Meq Tab* [Klor Con 10 MEQ] 10 meq PO TID #90 tab Nitrofurantoin Macro 100 mg [Macrobid 100MG Capsule] 100 mg PO BID #20 capsule Acyclovir 200 mg Cap [Zovirax 200 mg ] 200 mg PO 5XD Benzonatate [Tessalon Perle] 100 mg PO TIDPRN PRN PRN Reason: Cough Alprazolam 1 mg [Xanax 1 mg] 2 mg PO HS #60 tablet Follow up with: JOHNNY REINOSO [Primary Care Provider] - Forms: Patient Portal Information
[2017-02-12] MEDS: Lasix 20 MG/2 ML IV SCH (10:13)
[2017-02-12] MEDS: ENOXAPARIN SODIUM SQ SCH (10:13)
[2017-02-12] MEDS: Klor Con 10 MEQ PO SCH (10:14)
[2017-02-12] MEDS: Protonix 40MG Tablet PO SCH (10:14)
[2017-02-12] MEDS: ECOTRIN 81 MG PO SCH (10:14)
[2017-02-12 11:09] VITALS: BP 108/57; O2SAT 96
[2017-02-12 11:28] VITALS: PULSE 108
--- NOTE | 2017-02-13 19:47 | PCM.DS ---
Discharge Summary Date of Admission: 02/09/17 17:45 Date of Discharge: 02/12/17 Admitting Physician: JOHNNY REINOSO Primary Care Provider: JOHNNY REINOSO Allergies Allergies Sulfa (Sulfonamide Antibiotics) Allergy (Severe, Verified 02/09/17 15:29) Swelling bacitracin [From Neosporin ([id number])] Allergy (Intermediate, Verified 15:29) Swelling bacitracin zinc [From Neosporin ([id number]-[id number])] Allergy (Intermediate, Verified 02/09/17 15:29) Swelling influenza virus vaccine, specific [influenza virus vacc,specific] Allergy ( Intermediate, Verified 02/09/17 15:29) Swelling neomycin sulfate [From Neosporin ([id number])] Allergy (Intermediate, Verified 02/09/17 15:29) Swelling polymyxin B [From Neosporin ([id number])] Allergy (Intermediate, Verified 15:29) Swelling Hospital Summary - Hospital Course Hospital Course: she presented febrile with a pneumonia and then a copd exacerbation as well. She had had an outbreak of vaginal ulcers and swelling that tested negative for hsv and thought to be shingles. She required Mills placement as outpatietn prior to admission as swelling and pain prevented urination. She then developed the fever and urine cutlure was negative. She had recent bronchoscopy earlier in the month at [facility] for post obstructive pneumonia for her stage IV lung cancer that she follows with oncology for radiation and chemotherapy. She required treatment with zosyn and remained afebrile throughout the stay after initial presentation. She was on acyclovir as well and she was given steroids for her copd as well as iv lasix for her chronic diastolic heart failure. Prior to presentation she fell at home and her was unable to get her up. With her progressively worsening weakness she does not feels he can safely be at home and her cannot safely help her at home and thus she is going for rehab at [facility] to complete the treatment for the pnuemonia and the copd exacerbation. WIll d/c the [facility] in 2 weeks as she had trial d/c prior to admission and was unable to void still with the painful ulcerations. - Vitals & Intake/Output Vital Signs: Vital Signs Temperature 97.6 F 02/12/17 11:00 Pulse Rate 108 H 02/12/17 11:00 Respiratory Rate 20 02/12/17 12:00 Blood Pressure 108/57 02/12/17 11:00 O2 Sat by Pulse Oximetry 96 02/12/17 11:00 Oxygen-Last Documented O2 Percentage 3 Liters = 32% Intake & Output: Intake & Output 02/11/17 02/12/17 02/13/17 02/14/17 11:59 11:59 11:59 11:59 Intake Total 2109 1560 220 Output Total 2100 2950 850 Balance 9 -1390 -630 - Lab Result Diagrams: 02/12/17 05:36 02/12/17 05:36 Micro Results-Entire Visit: Microbiology 02/09/17 19:00 - Final Catherized NO GROWTH - Procedures and Test Procedures and Tests throughout Hospitalization: Therapy Orders & Screens 02/09/17 17:18 Oxygen NASAL CANNULA 2 lpm Comment: Diagnosis: Shortness of Breath 02/09/17 17:26 Respiratory Nebulizer Comment: Diagnosis: Shortness of Breath 02/09/17 19:00 Respiratory Nebulizer Q4H Comment: ALBUTEROL Q4 Diagnosis: Shortness of Breath Discharge Exam General Appearance: no apparent distress, alert Neurologic Exam: alert, oriented x 3, cooperative, normal mood/affect, nml cerebellar function, sensation nml, No motor deficits Skin Exam: normal color, warm, dry Eye Exam: PERRL, EOMI, eyes nml inspection Ears, Nose, Throat Exam: normal ENT inspection, pharynx normal, moist mucous membranes Neck Exam: normal inspection, non-tender, supple, full range of motion Respiratory Exam: crackles/rales, No respiratory distress Cardiovascular Exam: regular rate/rhythm, normal heart sounds Gastrointestinal/Abdomen Exam: soft, No tenderness, No mass Extremity Exam: normal inspection, normal range of motion Back Exam: normal inspection, normal range of motion, No CVA tenderness, No vertebral tenderness Pelvic Exam: other (right labial ulcerations improving swelling improving lesions of the buttocks crusted now) Rectal Exam: deferred Final Diagnosis/Problem List - Final Discharge Diagnosis/Problem (1) COPD exacerbation Status: Acute (2) UTI (urinary tract infection) Status: Acute (3) Urinary retention Status: Acute (4) Herpes simplex Status: Acute (5) Pneumonia Status: Acute (6) Constipated Status: Chronic (7) Anemia Status: Chronic (8) Lung cancer Status: Chronic - Discharge Discharge Date: 02/12/17 Disposition: [facility] Condition: Stable Prescriptions: New Amox Tr/Potass Clav. 875 mg [Augmentin 875-125 Tablet] 875 mg PO BID # 10 tablet Prednisone 20 mg [Deltasone 20 mg] 40 mg PO DAILY #10 tablet Magnesium Hydroxide 30 ml [Milk of Magnesia 30 ml] 30 ml PO QDP PRN #0 udcup PRN Reason: Constipation PANTOPRAZOLE 40 mg Tablet [Protonix 40MG Tablet] 40 mg PO DAILY #0 tab Acetaminophen 325 mg [Tylenol 325 mg] 650 mg PO Q4H PRN PRN #0 tablet PRN Reason: Pain And/Or Fever Lidocaine HCl 2% Jelly [Xylocaine 2% JELLY] 2 ml TOP Q2H PRN #0 jel PRN Reason: Pain Acyclovir 800 mg [Zovirax 800 mg] 800 mg PO 5XD #0 tablet Continue Furosemide [Lasix] 40 mg PO DAILY Aspirin 81 mg PO DAILY Albuterol 8 gm Mdi Hfa [Ventolin Hfa MDI] 2 puff IH Q4HPRN PRN PRN Reason: Shortness Of Breath Pravastatin Sodium 20 mg PO HS Potassium Chloride 10 Meq Tab* [Klor Con 10 MEQ] 10 meq PO TID #90 tab Nitrofurantoin Macro 100 mg [Macrobid 100MG Capsule] 100 mg PO BID #20 capsule Acyclovir 200 mg Cap [Zovirax 200 mg ] 200 mg PO 5XD Benzonatate [Tessalon Perle] 100 mg PO TIDPRN PRN PRN Reason: Cough Alprazolam 1 mg [Xanax 1 mg] 2 mg PO HS #60 tablet Instructions: Pneumonia -- Adult, Urinary Tract Infection (UTI) Additional Instructions: SUZAN MEJÍA [facility] ORDERS: PT/OT EVAL AND TREAT REGULAR DIET TOLERATED 3L O2 PER NC NEEDED TO KEEP SPO2 > 92% SEE ATTACHED MEDICINE RECORD FOR CURRENT MED ORDERS keep appointment with oncologist Follow up with: JOHNNY REINOSO [Primary Care Provider] - (DR. REINOSO TO FOLLOW AT THE [facility]) Forms: Patient Portal Information, Transfer Record [facility]
== END 2017-02-12 12:40 | DRG 190 ==
LOC: ED 15:21 → MED SURG 17:45
PROVIDERS: ADMIT Family Medicine; ATTEND Family Medicine
DX: J44.1 Chronic obstructive pulmonary disease with (acute) exacerbation (principal); J18.9 Pneumonia, unspecified organism; N39.0 Urinary tract infection, site not specified; C34.90 Malignant neoplasm of unspecified part of unspecified bronchus or lung; R33.9 Retention of urine, unspecified; B00.9 Herpesviral infection, unspecified; K59.00 Constipation, unspecified; D64.9 Anemia, unspecified
CPT/HCPCS: 36000; 36415; 36591; 51702; 71010; 80048; 80053; 81000; 83605; 83880; 85025; 85027; 85610; 87040; 87086; 93005; 93041; 94640; 94760; 96360; 96361; 96365; 99285; J1642; J1650; J1940; J1956; J2543; J2930; A9270-GY